=== PATIENT | female | born 1995 | race Caucasian/White ===

== ENCOUNTER 2023-04-05 14:48 | Outpatient (REF) | payer MEDICAID, SELFPAY ==
[2023-04-06 03:31] LABS: Syphilis Screen Nonreactive (Nonreactive)
[2023-04-06 03:58] LABS: HIV AB/AG Nonreactive (Nonreactive); HIV Num 1 0.05 S/CO (0.00-0.99)
[2023-04-06 10:35] LABS: BV Int Neg Control Negative (Negative); BV Int Pos Control Positive (Positive)
== END 2023-04-05 14:49 | disposition home or self-care (01) ==
LOC: HO.HHCL 14:48
PROVIDERS: Visit Provider Emergency Medicine
DX: N89.8 Other specified noninflammatory disorders of vagina (principal); N30.01 Acute cystitis with hematuria
CPT/HCPCS: 36415; 86780; 87086; 87088; 87186; 87389; 87480; 87510; 87660

== ENCOUNTER 2023-12-24 12:06 | Outpatient (REF) | payer MEDICAID, SELFPAY ==
[2023-12-24 15:01] LABS: Anion Gap 12 (12-20); Blood Urea Nitrogen 11 mg/dL (9-16); Calcium 9.2 mg/dL (8.4-10.2); Carbon Dioxide 27 mmol/L (22-29); Chloride 106 mmol/L (96-108); Cholesterol 165 mg/dL (<200); Estimated Glomerular Filt Rate > 60; Glucose Fasting 100 mg/dL (60-99); HDL Cholesterol 41 mg/dL (>40); LDL Cholesterol Calculated 107 mg/dL (<100); Potassium 4.2 mmol/L (3.3-5.1); Sodium 141 mmol/L (135-145); Triglycerides 85 mg/dL (<150)
[2023-12-24 15:16] LABS: TSH reflex Free T4 1.44 uIU/mL (0.32-4.0)
[2023-12-25 08:24] LABS: DHEA Sulfate 256 mcg/dL (14-349)
== END 2023-12-24 12:07 | disposition home or self-care (01) ==
LOC: HO.CHCLDS 12:06
PROVIDERS: Visit Provider Pediatrics
DX: N92.6 Irregular menstruation, unspecified (principal); L68.0 Hirsutism
CPT/HCPCS: 36415; 80048; 80061; 82627; 84443

== ENCOUNTER 2024-05-18 10:07 | Outpatient (AMB) | payer OTHER, SELFPAY ==
--- NOTE | 2024-05-18 10:10 | A.OFFVIS_ITS ---
Vital Signs 05/18/24 10:11 Height 5 ft 2 in Weight 171 lb 4.787 oz BMI 31.3 BP 98/62 Blood Pressure Location Lt brachial Position Sitting Pulse 68 Pulse Source Pulse Oximeter Intake Visit Reasons: Hirsutism Intake Note: New patient present today for Hirsutism office visit. Senior Investment Manager Required: No Accompanied by: Self / Same As Patient Allergies No Known Allergies Allergy (Verified 05/18/24 10:14) Medication List - Last Reconciled 05/18/24 by Korin Minaya MD bupropion HCl XL 150 mg PO DAILY spironolactone 75 mg PO DAILY HPI Comments Details: 29-year-old female coming in today for initial evaluation of hirsutism. presents with no complaints of hirsutism, acne, hair loss. She denies history of HTN, hyperlipidemia, prediabetes. She has family history of paternal grandmother having a pacemaker, but no one with DM, stroke, [place]. Hirsutism: some chin hair she plucks, waxes upper lip, no excessive hair on abdomen or breast. Laser treatment for hair of bikini area and axillae. Legs shave, doesnt do anything on arms. Ferrimen Shin score of 8 done with patient. Reports easy bruising, no proximal muscle weakness. No abdominal striae. Weight 171 lbs BMI 31.1, highest per patient. Feels it has increased in the last 2 years, before she used to be 150 lbs when she works out. Exercises 6 times a week 1 hr cardio 1 hr weights. Diet : 3 meals a day sometimes snacks, fruits mostly, sometimes chips or cookies Denies hair loss on scalp. Acne: 2016 treated with acutane, 2019 again acutane, now again since last year, seeing dermatology , mostly on the cheeks Acne now better Started spironolactone 75 mg 3 months ago through PCP. she has a copper IUD since the past 3-4 years. 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 Menarche: 12 years LMP : 05/15 :1 : 1 Liposuction 2020 Medications: Spironolactone 75 mg daily, Used to be on OCPs but got while on it Cosmetic therapies: Laser hair removal, waxing, threading, plucking She had an ultrasound of her pelvis in February 2024, I do not these results this time. Review of systems Constitutional: no fevers, chills or weight loss HEENT: no changes in vision Cardiac: No chest pain, discomfort or palpitations. Pulmonary: No SOB GI:No abdominal pain, no nausea or vomiting, no anorexia, no blood in stool : no burning micturition, dysuria or increase in urinary frequency Neurologic: No dizziness, no weakness in extremities MSK: no back pain or joint stiffness Physical exam General: sitting comfortably in no acute distress HEENT: normocephalic/atraumatic, moist oral mucosa Neck: supple, symmetrical, no thyromegaly , no dorsocervical or supraclavicular fat pads Cardiac: normal heart sounds Pulm: normal breath sounds B/L, no added breath sounds Abd: not distended, no tenderness Extremities: no edema, no signs of myxedema Neuro: AAO x3, Speech: normal, no facial droop, moving all 4 extremities Skin: no rash, no abdominal striae, no excessive hair noted on side diamond, no facial hair, but she plucks this. No hair on abdomen. [facility] Medical History (Updated 05/18/24 @ 11:09 by Korin Minaya MD) Obesity (BMI 30.0-34.9) Hirsutism Surgical History (Updated 05/18/24 @ 10:16 by MATTHEW Hunt) History of plastic surgery Family History (Updated 05/18/24 @ 10:17 by MATTHEW Hunt) Mother No problems noted. Father Hypertension Social History (Updated 05/18/24 @ 10:18 by MATTHEW Hunt) Alcohol intake: current Comment: Socially Patient Tobacco Use Status: Never used Tobacco Physical Exam Vital Signs: Last Vital Signs Pulse 68 05/18/24 10:11 BP 98/62 05/18/24 10:11 BMI result Body Mass Index 31.3 Results Reviewed Results Reviewed: Laboratory Tests 12/24/23 12/24/23 12:07 12:09 Triglycerides 85 Cholesterol 165 LDL Cholesterol, Calc 107 H HDL Cholesterol 41 TSH 1.44 DHEA Sulfate 256 Assessment & Plan Assessment & Plan (1) Hirsutism: Code(s): L68.0 - Hirsutism Category: Medical Plan: Patient with a history hirsutism, acne. Labs showed normal thyroid function, normal DHEA-S. Nodule lab evaluation. She had an ultrasound of her pelvis/ovaries in February 2024 I do not have the results of those. She is on spironolactone 75 mg daily. No lightheadedness/dizziness. Blood pressure is slightly on the lower side but she is tolerating it well. We will repeat her basic metabolic panel given spironolactone use. She is not on oral contraceptive pills, she has a copper IUD, her periods are regular. She previo usly got and had to have an on the oral contraceptive pill hence she is not on those. She has never tried metformin. New diagnosis of diabetes, prediabetes, hypertension. She does have elevated LDL cholesterol levels. At this time we will do hormonal evaluation though we have to keep in mind she is already on spironolactone since off might be affected because of diet. I will also check prolactin levels. I will also obtain the results of her ultrasound. We will check a 17 hydroxy progesterone levels to evaluate for CAH. Ferrimen Gellway score 8, hirsutism is mild. She is using cosmetic therapies such as laser but only requires plucking for excessive facial hair. Reports improvement on the spironolactone and she can continue that. Discussed importance of contraception and spironolactone with risk of feminization is male fetus. She has a copper IUD. She otherwise has regular menstruation. If she has polycystic ovaries on her ultrasound which I will obtain the results of, then she would meet criteria for PCOS otherwise she has acne/hirsutism without diagnosis of PCOS I reviewed with the patient the implications of polycystic ovarian syndrome in terms of 1) reproductive health (increased risk of infertity, miscarriage), 2) metabolic issues (type 2 diabetes, hypertension, dyslipidemia, cardiovascular disease) and 3) hyperandrogenism (acne, hirsuitism, male pattern hair loss). We reviewed that weight loss in overweight woman can help improve these morbidities, but often woman with PCOS do need further assistance with fertility using metformin plus clomiphene or letrazole. Currently she is not looking into . Plan: -continue spironolactone 75 mg daily , can consider increasing it to 100 patient can tolerate it and needs further improvement for hirsutism -ordered blood work with testosterone levels, 17 hydroxy progesterone, DHEA-S, androstenedione, prolactin, basic metabolic panel, A1c -ordered 24 hour urine cortisol levels to evaluate for [place] given history of obesity, easy bruising -obtain ultrasound records -follow up in 4 weeks (2) Obesity (BMI 30.0-34.9): Code(s): E66.9 - Obesity, unspecified Category: Medical Plan: BMI 31.3 kg per m2 Highest BMI per patient. She used to be 152 lb, now 171 lb. She does report improvement with exercise and lifestyle modification in the past. She is now exercising 6 days a week, and also planning to start with calorie de ficit. I reviewed with patient the importance of weight loss as it relates to decreasing the risk of diabetes, cardiovascular disease, obstructive sleep apnea,PCOS, arthritis. We reviewed the importance of decreasing total calorie consumption, minimizing fats and carbohydrates. Discussed the 500 calorie deficit plan Encouraged good exercise plan We will check A1c. Can consider starting metformin if she has prediabetes. ordered 24 hour urine cortisol levels to evaluate for [place] given history of obesity, easy bruising Plan I spent 45 minutes in reviewing the record, seeing the patient and documenting in the medical record. Orders: Orders Testosterone, Free/Total Today L68.0 - Hirsutism 17 Hydroxyprogesterone Today L68.0 - Hirsutism Lutenizing Hormone Today L68.0 - Hirsutism DHEA Sulfate Today L68.0 - Hirsutism Prolactin Today L68.0 - Hirsutism Cortisol, Free 24Hr Urine Today L68.0 - Hirsutism Androstenedione Today L68.0 - Hirsutism Follicle Stimulating Hormone Today L68.0 - Hirsutism Creatinine, 24 Hr Group Today L68.0 - Hirsutism Hemoglobin A1c Today L68.0 - Hirsutism Basic Metabolic Panel Today L68.0 - Hirsutism Patient Instructions: Do blood work 24 hr urine collection instructions You have been asked to collect your urine for 24 hours to assess for calcium excretion. You must choose a 24 hour period of time when you will be home. The morning of the first day, DISCARD the FIRST morning void and then note the time. You will collect every single void from then on for 24 hours. For example, if you wake up at 6am and urinate, flush down that void. You will then collect every drop of urine all day and all night through 6am the following day. You will urinate one last time at 6am for the collection. The jug of urine must be kept in the refrigerator until you bring it to the lab.You have been asked to collect your urine for 24 hours to assess for calcium excretion. You must choose a 24 hour period of time when you will be home. The morning of the first day, DISCARD the FIRST morning void and then note the time. You will collect every single void from then on for 24 hours. For example, if you wake up at 6am and urinate, flush down that void. You will then collect every drop of urine all day and all night through 6am the following day. You will urinate one last time at 6am for the collection. The jug of urine must be kept in the refrigerator until you bring it to the lab. Weight loss counselling ? Limit added sugars to less than 25 grams daily. There are 4.2 grams of sugar per teaspoon of sugar. A teaspoon of honey has 6 grams of sugar! Bread also can have more sugar than you think-check labels ? No soda or juices. Drink water, unsweetened iced tea or seltzer ? Limit eating out/take out or prepared meals to twice weekly at most ? Avoid red meat, hot dogs, peterson and deli meat. Substitute plant protein for animal protein as much as you can. Beans, nuts, tofu, soy milk ? Limit cheese to 1 ounce a few times weekly ? Eat high fiber foods like beans, apples and green veggies, salsa is a great snack with whole grain cracker like Wasa ? Look for the whole grain stamp when choosing bread etc. Aim for 48 grams of whole grains daily. Whole wheat does not equal whole grains! ? Don't keep tempting treats in the house. Go out once in a while for a treat. ? Don't eat anything deep fried or cream based-no sour cream Coding Level of Care Code New Pt Level 4 (29091) Diagnoses Hirsutism L68.0 Obesity (BMI 30.0-34.9) E66.9 Time Spent (min) 45
[2024-05-18 10:11] VITALS: BP 98/62; PULSE 68; BMI 31.3
== END 2024-05-18 11:03 | disposition home or self-care (01) ==
PROVIDERS: PCP Pediatrics; Visit Provider Student in an Organized Health Care Education/Training Program
DX: L68.0 Hirsutism (principal); E66.9 Obesity, unspecified
CPT/HCPCS: 99204

== ENCOUNTER → 2024-05-18 10:07 | Outpatient (BNVA) | payer MEDICAID, SELFPAY | PROVIDERS: PCP Pediatrics; Visit Provider Student in an Organized Health Care Education/Training Program | DX: L68.0 Hirsutism (principal); E66.9 Obesity, unspecified; Z68.31 Body mass index [BMI] 31.0-31.9, adult | CPT/HCPCS: 99202 ==

== ENCOUNTER 2024-06-19 12:40 | Outpatient (REF) | payer MEDICAID, SELFPAY ==
[2024-06-19 13:42] LABS: Estimated Average Glucose 94 mg/dL; Hemoglobin A1C 95.1476 umol/L; Hemoglobin A1c % 4.9 % (<6.0)
[2024-06-19 14:04] LABS: Creatinine, mg/dL 181.99
[2024-06-19 14:11] LABS: Anion Gap 9 (12-20); Blood Urea Nitrogen 12 mg/dL (9-16); Calcium 9.3 mg/dL (8.4-10.2); Carbon Dioxide 27 mmol/L (22-29); Chloride 106 mmol/L (96-108); Estimated Glomerular Filt Rate > 60; Glucose Random 103 mg/dL (60-115); Potassium 3.8 mmol/L (3.3-5.1); Sodium 138 mmol/L (135-145)
[2024-06-19 14:40] LABS: Creatinine, 24Hr Urine 1.5 G/Day (1.0-2.0); Total Volume 24 Hour Urine 850 mL
[2024-06-21 02:29] LABS: DHEA Sulfate 262 mcg/dL (14-349); Prolactin 16.9 ng/mL
[2024-06-25 15:48] LABS: Testosterone, Free 2.7 pg/mL (0.1-6.4); Testosterone, Total 19 ng/dL (2-45)
[2024-06-27 17:34] LABS: Cortisol Free, 24 Hr Urine 15.2 mcg/24 h (4.0-50.0); Creatinine, 24 Hr Urine 1.42 g/24 h (0.50-2.15); Total Volume, 24 Hr Urine 850 mL
[2024-06-29 13:48] LABS: Androstenedione 146 ng/dL
== END 2024-06-19 12:41 | disposition home or self-care (01) ==
LOC: HO.10HDL 12:40
PROVIDERS: Visit Provider Student in an Organized Health Care Education/Training Program
DX: L68.0 Hirsutism (principal)
CPT/HCPCS: 36415; 80048; 82157; 82530; 82570; 82627; 83001; 83002; 83036; 83498; 84146; 84402; 84403

== ENCOUNTER 2024-06-25 10:36 | Outpatient (AMB) | payer MEDICAID, SELFPAY ==
[2024-06-25 10:42] VITALS: BP 118/72; BMI 30.6
--- NOTE | 2024-06-25 10:42 | MHC.OFFVIS ---
Vital Signs 06/25/24 10:42 Height 5 ft 2 in Weight 167 lb 8.821 oz BMI 30.6 BP 118/72 Blood Pressure Location Lt brachial Position Sitting Intake Visit Reasons: Hairutism-lvm Intake Note: Patient present today for Hirsutism follow up visit. Environmental Issues Instructor Required: No Accompanied by: Self / Same As Patient Allergies No Known Allergies Allergy (Verified 06/25/24 10:50) HPI Comments Details: 29-year-old female coming in today for follow up of hirsutism. HPI from prior visit presents with no complaints of hirsutism, acne, hair loss. She denies history of HTN, hyperlipidemia, prediabetes. She has family history of paternal grandmother having a pacemaker, but no one with DM, stroke, [place]. Hirsutism: some chin hair she plucks, waxes upper lip, no excessive hair on abdomen or breast. Laser treatment for hair of bikini area and axillae. Legs shave, doesnt do anything on arms. Ferrimen Shin score of 8 done with patient. Reports easy bruising, no proximal muscle weakness. No abdominal striae. Weight 171 lbs BMI 31.1, highest per patient. Feels it has increased in the last 2 years, before she used to be 150 lbs when she works out. Exercises 6 times a week 1 hr cardio 1 hr weights. Diet : 3 meals a day sometimes snacks, fruits mostly, sometimes chips or cookies Denies hair loss on scalp. Acne: 2016 treated with acutane, 2019 again acutane, now again since last year, seeing dermatology , mostly on the cheeks Acne now better Started spironolactone 75 mg 3 months ago through PCP. she has a copper IUD since the past 3-4 years. 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 Menarche: 12 years LMP : 05/15 :1 : 1 Liposuction 2020 Medications: Spironolactone 75 mg daily stopped in May 2024, Used to be on OCPs but got while on it Cosmetic therapies: Laser hair removal, waxing, threading, plucking She had an ultrasound of her pelvis in February 2024, I do not these results this time. Interval history She reports she has stopped the spironolactone 75 mg daily a few weeks back in May 2024 due to strong smell in urine. She could not tolerate it. She feels she is comfortable with cosmetic therapies. Menstruation continues to be regular. She has lost 4 lb with lifestyle modification. FSH, LH, prolactin levels normal. Blood work from 06/19/2024 still pending levels of testosterone and 24 hour urine cortisol levels. A1c was normal. Review of systems Constitutional: no fevers, chills or weight loss HEENT: no changes in vision Cardiac: No chest pain, discomfort or palpitations. Pulmonary: No SOB GI:No abdominal pain, no nausea or vomiting, no anorexia, no blood in stool : no burning micturition, dysuria or increase in urinary frequency Neurologic: No dizziness, no weakness in extremities MSK: no back pain or joint stiffness Physical exam General: sitting comfortably in no acute distress HEENT: normocephalic/atraumatic, moist oral mucosa Neck: supple, symmetrical, no thyromegaly , no dorsocervical or supraclavicular fat pads Cardiac: normal heart sounds Pulm: normal breath sounds B/L, no added breath sounds Abd: not distended, no tenderness Extremities: no edema, no signs of myxedema Neuro: AAO x3, Speech: normal, no facial droop, moving all 4 extremities Skin: no rash, no abdominal striae, no excessive hair noted on side diamond, no facial hair, but she plucks this. No hair on abdomen. Laboratory Tests 12/24/23 06/19/24 12:09 12:50 Hemoglobin A1c % 4.9 FSH 11.0 Luteinizing Hormone 22.0 Prolactin 16.9 DHEA Sulfate 256 262 17-Hydroxyprogesterone 144 Laboratory Tests 12/24/23 12/24/23 12:07 12:09 Triglycerides 85 Cholesterol 165 LDL Cholesterol, Calc 107 H HDL Cholesterol 41 TSH 1.44 DHEA Sulfate 256 PFSH Medical History (Updated 05/18/24 @ 11:09 by Korin Minaya MD) Obesity (BMI 30.0-34.9) Hirsutism Surgical History History of plastic surgery Family History Mother No problems noted. Father Hypertension Social History Alcohol intake: current Comment: Socially Patient Tobacco Use Status: Never used Tobacco Physical Exam Vital Signs: Last Vital Signs BP 118/72 06/25/24 10:42 BMI result Body Mass Index 30.6 Assessment & Plan Assessment & Plan (1) Hirsutism: Code(s): L68.0 - Hirsutism Category: Medical Plan: Patient with a history hirsutism, acne. Labs showed normal thyroid function, normal DHEA-S. . She had an ultrasound of her pelvis/ovaries in February 2024 I do not have the results of those. We tried obtaining these from [facility] records, however they faxed back saying they do not have any records. I have asked the patient to obtain these results from me and send them to me. If not found, I will have her repeat an ultrasound of her uterus/ovaries. She has stopped taking the spironolactone 75 mg daily in May 2024 due to strong smell in the urine, which improved after stopping the medication. She is not interested in this at this time and is okay with pursuing cosmetic therapies such as plucking/shaving. She is not on oral contraceptive pills, she has a copper IUD, her periods are regular. She previously got and had to have an on the oral contraceptive pill hence she is not on those. She has never tried metformin. No diagnosis of diabetes, prediabetes, hypertension. Normal prolactin, FSH, LH, 17 hydroxyprogesterone and DHEA-S levels. Testosterone levels are pending. Ferrimen Gellway score 8, hirsutism is mild. She is using cosmetic therapies such as laser but only requires plucking for excessive facial hair. she can continue that. She otherwise has regular menstruation. If she has polycystic ovaries on her ultrasound which I will obtain the results of, then she would meet criteria for PCOS otherwise she has acne/hirsutism without diagnosis of PCOS I reviewed with the patient the implications of polycystic ovarian syndrome in terms of 1) reproductive health (increased risk of infertity, miscarriage), 2) metabolic issues (type 2 diabetes, hypertension, dyslipidemia, cardiovascular disease) and 3) hyperandrogenism (acne, hirsuitism, male pattern hair loss). We reviewed that weight loss in overweight woman can help improve these morbidities, but often woman with PCOS do need further assistance with fertility using metformin plus clomiphene or letrazole. Currently she is not looking into . Plan: - -follow up results of testosterone levels, -follow up results of 24 hour urine cortisol levels to evaluate for [place] given history of obesity, easy bruising -obtain ultrasound records (2) Obesity (BMI 30.0-34.9): Code(s): E66.9 - Obesity, unspecified Category: Medical Plan: BMI 30.6 kg/m2 down from 31.3 kg per m2 Highest BMI per patient was 31. She used to be 152 lb, now down to 167 lbs from 171 lb in 4 weeks. She does report improvement with exercise and lifestyle modification in the past. She is now exercising 6 days a week, and also doing calculation with calorie deficit. I reviewed with patient the importance of weight loss as it relates to decreasing the risk of diabetes, cardiovascular disease, obstructive sleep apnea,PCOS, arthritis. We reviewed the importance of decreasing total calorie consumption, minimizing fats and carbohydrates. Encouraged to continue the 500 calorie deficit plan Encouraged good exercise plan Follow up in 12 weeks Plan see above Coding Level of Care Code Est Pt Level 3 (94085) Diagnoses Hirsutism L68.0 Obesity (BMI 30.0-34.9) E66.9
== END 2024-06-25 11:19 | disposition home or self-care (01) ==
LOC: HO.ENCR 10:37
PROVIDERS: PCP Pediatrics; Visit Provider Student in an Organized Health Care Education/Training Program
DX: L68.0 Hirsutism (principal); E66.9 Obesity, unspecified
CPT/HCPCS: 99213

== ENCOUNTER → 2024-06-25 10:36 | Outpatient (BNVA) | payer MEDICAID, SELFPAY | PROVIDERS: PCP Pediatrics; Visit Provider Student in an Organized Health Care Education/Training Program | DX: L68.0 Hirsutism (principal); E66.9 Obesity, unspecified; Z68.30 Body mass index [BMI] 30.0-30.9, adult | CPT/HCPCS: 99212 ==

== ENCOUNTER 2024-08-10 09:31 | Outpatient (AMB) | payer MEDICAID, SELFPAY ==
[2024-08-10 09:34] VITALS: BP 118/60; PULSE 76; BMI 31.1
--- NOTE | 2024-08-10 09:34 | A.OFFVIS_ITS ---
Vital Signs 08/10/24 09:34 Height 5 ft 2 in Weight 170 lb 3.15 oz BMI 31.1 BP 118/60 Blood Pressure Location Lt brachial Position Sitting Pulse 76 Pulse Source Pulse Oximeter Intake Visit Reasons: hirsutism Intake Note: Patient present today for Hirsutism office visit. Oracle Data Warehouse Developer Required: No Accompanied by: Self / Same As Patient Allergies No Known Allergies Allergy (Verified 08/10/24 09:37) HPI Comments Details: 29-year-old female coming in today for follow up of hirsutism and obesity . HPI from prior visit presents with complaints of hirsutism, acne, hair loss. She denies history of HTN, prediabetes. She has family history of paternal grandmother having a pacem stephanie, but no one with DM, stroke, [place]. . Hirsutism: some chin hair she plucks, waxes upper lip, no excessive hair on abdomen or breast. Laser treatment for hair of bikini area and axillae. Legs shave, doesnt do anything on arms. Ferrimen Shin score of 8 done with patient. Reports easy bruising, no proximal muscle weakness. No abdominal striae. Weight 171 lbs BMI 31.1, highest per patient. Feels it has increased in the last 2 years, before she used to be 150 lbs when she works out. Exercises 6 times a week 1 hr cardio 1 hr weights. Diet : 3 meals a day sometimes snacks, fruits mostly, sometimes chips or cookies Denies hair loss on scalp. Acne: 2016 treated with acutane, 2019 again acutane, now again since last year, seeing dermatology , mostly on the cheeks Acne now better Started spironolactone 75 mg 3 months ago through PCP. she has a copper IUD since the past 3-4 years. 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 Menarche: 12 years LMP : 05/15 :1 : 1 Liposuction 2020 Medications: Spironolactone 75 mg daily stopped in May 2024, Used to be on OCPs but got while on it Cosmetic therapies: Laser hair removal, waxing, threading, plucking She had an ultrasound of her pelvis in February 2024, I do not have the report scanned in but patient showed me a picture of the report on her phone today08/10/24 which showed no polycystic ovaries , normal appearance of the ovaries and a subserosal fundal fibroid 1.3 x 0.9 x 1.3 cm done at [facility] 03/03/24. Interval history 06/25/24 She reports she has stopped the spironolactone 75 mg daily a few weeks back in May 2024 due to strong smell in urine. She could not tolerate it. She feels she is comfortable with cosmetic therapies. Menstruation continues to be regular. She has lost 4 lb with lifestyle modification. FSH, LH, prolactin levels normal. Blood work from 06/19/2024 shoed normal levels of testosterone and 24 hour urine cortisol levels. A1c was normal. Interval history 08/10/24 BMI 31.1 up from 30.6 kg/m2 Weight up at 171 from 167s lbs Exercise 3 miles a day walking daily , also weight training 4 times a week, hot yoga once a week Diet : trying to do a calorie deficit with calori counter trying to do 500 calories almost daily Has copper IUD Review of systems Constitutional: no fevers, chills or weight loss HEENT: no changes in vision Cardiac: No chest pain, discomfort or palpitations. Pulmonary: No SOB GI:No abdominal pain, no nausea or vomiting, no anorexia, no blood in stool : no burning micturition, dysuria or increase in urinary frequency Neurologic: No dizziness, no weakness in extremities MSK: no back pain or joint stiffness Physical exam General: sitting comfortably in no acute distress HEENT: normocephalic/atraumatic, moist oral mucosa Neck: supple, symmetrical, no thyromegaly , no dorsocervical or supraclavicular fat pads Cardiac: normal heart sounds Pulm: normal breath sounds B/L, no added breath sounds Abd: not distended, no tenderness Extremities: no edema, no signs of myxedema Neuro: AAO x3, Speech: normal, no facial droop, moving all 4 extremities Skin: no rash, no abdominal striae, no excessive hair noted on side diamond, no facial hair, but she plucks this. No hair on abdomen. Laboratory Tests 12/24/23 06/19/24 12:09 12:50 Hemoglobin A1c % 4.9 FSH 11.0 Luteinizing Hormone 22.0 Prolactin 16.9 DHEA Sulfate 256 262 17-Hydroxyprogesterone 144 Laboratory Tests 12/24/23 12/24/23 12:07 12:09 Triglycerides 85 Cholesterol 165 LDL Cholesterol, Calc 107 H HDL Cholesterol 41 TSH 1.44 DHEA Sulfate 256 Laboratory Tests 06/19/24 06/19/24 10:00 12:50 FSH 11.0 Luteinizing Hormone 22.0 Total Testosterone 19 Fr Testosterone Dialys 2.7 Androstenedione 146 DHEA Sulfate 262 17-Hydroxyprogesterone 144 Urine Total Volume 850 Ur 24 Hour Volume 850 Ur Creatinine mg/dL 181.99 Ur Creatinine 24 Hour 1.42 Ur Free Cortisol 24 Hr 15.2 PFSH Medical History (Updated 05/18/24 @ 11:09 by Korin Minaya MD) Obesity (BMI 30.0-34.9) Hirsutism Surgical History History of plastic surgery Family History Mother No problems noted. Father Hypertension Social History Alcohol intake: current Comment: Socially Patient Tobacco Use Status: Never used Tobacco Assessment & Plan Assessment & Plan (1) Hirsutism: Code(s): L68.0 - Hirsutism Category: Medical Plan: Patient with a history hirsutism, acne. Labs showed normal thyroid function, normal DHEA-S. . She had an ultrasound of her pelvis/ovaries in February 2024 at [facility] which did not show polycystic ovaries. She has stopped taking the spironolactone 75 mg daily in May 2024 due to strong smell in the urine, which improved after stopping the medication. She is not interested in this at this time and is okay with pursuing cosmetic therapies such as plucking/shaving. She is not on oral contraceptive pills, she has a copper IUD, her periods are regular. She previously got and had to have an on the oral contraceptive pill hence she is not on those. She has never tried metformin. No diagnosis of diabetes, prediabetes, hypertension. Normal prolactin, FSH, LH, 17 hydroxyprogesterone and DHEA-S levels, testosterone levels. Normal 24 hour urine cortisol level. Ferrimen Gellway score 8, hirsutism is mild. She is u sing cosmetic therapies such as laser but only requires plucking for excessive facial hair. she can continue that. Plan: -continue cosmetic measures -if interested in spironolactone again please let us know (2) Obesity (BMI 30.0-34.9): Code(s): E66.9 - Obesity, unspecified Category: Medical Plan: BMI 31.1 kg per m2 up from 30.6 kg/m2 in May 2024 Highest BMI per patient was 31. She used to be 152 lb, now at 171 lb up from 167 lbs May 2024. She has made extensive lifestyle modification in the past 6 months. She is maintaining a 500 calorie deficit daily on her phone apps , walking 3 miles daily, also doing resistance training in addition to that and hot yoga. No acromegalic features. 24 hour urine cortisol was normal. I reviewed with patient the importance of weight loss as it relates to decreasing the risk of diabetes, cardiovascular disease, obstructive sleep apnea,PCOS, arthritis. At this point patient has a lot of justified frustration that she has not seen any results with weight loss despite putting a lot of work cane, and given her BMI is greater than 30 kg per m2 she would qualify for weight loss medication. We discussed GLP 1 agonist, including semaglutide and tirzepatide. I discussed with her modes of administration, common side effects of GI intolerance, as well as less common side effects of pancreatitis, medullary thyroid cancer in rodents. She drinks alcohol occasionally. Does not have any history of gallstones. Denies any family or personal history of medullary thyroid cancer. Plan: -start Wegovy 0.25 mg weekly with plan for up titration in 4-6 weeks Follow up in 12 weeks Plan I spent 30 minutes in reviewing the record, seeing the patient and documenting in the medical record. Medications: New semaglutide (weight loss) (Wegovy) 0.25 mg (0.5 mL) subcut QWEEK 4 mL 5RF Patient Instructions: Start Wegovy 0.25 mg weekly Reach out to us in 6 weeks or so with increasing the dose Coding Level of Care Code Est Pt Level 4 (46009) Diagnoses Hirsutism L68.0 Obesity (BMI 30.0-34.9) E66.9 Time Spent (min) 30
== END 2024-08-10 10:05 | disposition home or self-care (01) ==
PROVIDERS: PCP Pediatrics; Visit Provider Student in an Organized Health Care Education/Training Program
DX: L68.0 Hirsutism (principal); E66.9 Obesity, unspecified
CPT/HCPCS: 99214

== ENCOUNTER → 2024-08-10 09:31 | Outpatient (BNVA) | payer MEDICAID, SELFPAY | PROVIDERS: PCP Pediatrics; Visit Provider Student in an Organized Health Care Education/Training Program | DX: L68.0 Hirsutism (principal); E66.9 Obesity, unspecified; Z68.31 Body mass index [BMI] 31.0-31.9, adult | CPT/HCPCS: 99212 ==

== ENCOUNTER 2024-11-09 09:35 | Outpatient (AMB) | payer MEDICAID, SELFPAY ==
--- NOTE | 2024-11-09 09:38 | MHC.OFFVIS ---
Vital Signs 11/09/24 09:39 Height 5 ft 2 in Weight 162 lb 11.218 oz BMI 29.8 BP 122/80 Blood Pressure Location Lt brachial Position Sitting Pulse 87 Pulse Source Pulse Oximeter Pulse Oximetry (%) 97 Oxygen Delivery Method Room Air Intake Visit Reasons: hirsutism Intake Note: Patient present today for hirsutism office visit. Allergies No Known Allergies Allergy (Verified 08/10/24 09:37) Medication List - Last Reconciled 11/09/24 by Korin Minaya MD sennosides (senna) 8.6 mg PO DAILY tirzepatide (weight loss) (Zepbound) 5 mg (0.5 mL) subcut QWEEK HPI Comments Details: 29-year-old female coming in today for follow up of hirsutism and obesity . HPI from prior visit presents with complaints of hirsutism, acne, hair loss. She denies history of HTN, prediabetes. She has family history of paternal grandmother having a pacemaker, but no one with DM, stroke, [place]. . Hirsutism: some chin hair she plucks, waxes upper lip, no excessive hair on abdomen or breast. Laser treatment for hair of bikini area and axillae. Legs shave, doesnt do anything on arms. Ferrimen Shin score of 8 done with patient. Reports easy bruising, no proximal muscle weakness. No abdominal striae. Weight 171 lbs BMI 31.1, highest per patient. Feels it has increased in the last 2 years, before she used to be 150 lbs when she works out. Exercises 6 times a week 1 hr cardio 1 hr weights. Diet : 3 meals a day sometimes snacks, fruits mostly, sometimes chips or cookies Denies hair loss on scalp. Acne: 2016 treated with acutane, 2019 again acutane, now again since last year, seeing dermatology , mostly on the cheeks Acne now better Started spironolactone 75 mg 3 months ago through PCP. she has a copper IUD since the past 3-4 years. 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 Menarche: 12 years LMP : 05/15 :1 : 1 Liposuction 2020 Medications: Spironolactone 75 mg daily stopped in May 2024, Used to be on OCPs but got while on it Cosmetic therapies: Laser hair removal, waxing, threading, plucking She had an ultrasound of her pelvis in February 2024, I do not have the report scanned in but patient showed me a picture of the report on her phone today08/10/24 which showed no polycystic ovaries , normal appearance of the ovaries and a subserosal fundal fibroid 1.3 x 0.9 x 1.3 cm done at [facility] 03/03/24. Interval history 06/25/24 She reports she has stopped the spironolactone 75 mg daily a few weeks back in May 2024 due to strong smell in urine. She could not tolerate it. She feels she is comfortable with cosmetic therapies. Menstruation continues to be regular. She has lost 4 lb with lifestyle modification. FSH, LH, prolactin levels normal. Blood work from 06/19/2024 shoed normal levels of testosterone and 24 hour urine cortisol levels. A1c was normal. Interval history 08/10/24 BMI 31.1 up from 30.6 kg/m2 Weight up at 171 from 167s lbs Exercise 3 miles a day walking daily , also weight training 4 times a week, hot yoga once a week Diet : trying to do a calorie deficit with calori counter trying to do 500 calories almost daily Has copper IUD Interval history 11/09/2024 BMI: 29.8 kg per m2 down from 31.1 kg per m2 July 2024 Weight at 162 lb down from 171 lb in July 2024 (3 months) Exercise: Exercise 4 miles (10 k steps) a day walking daily , also weight training 5 times a week, hot yoga three times a week Diet: Diet : trying to do a calorie deficit with calori counter trying to do 500 calories almost daily Currently on Zepbound 5 mg weekly, earlier had trouble with constipation now improved with stool softeners. Physical exam General: sitting comfortably in no acute distress HEENT: normocephalic/atraumatic, moist oral mucosa Cardiac: normal heart sounds Pulm: normal breath sounds B/L, no added breath sounds Abd: not distended, no tenderness Extremities: no edema, no signs of myxedema Neuro: AAO x3, Speech: normal, no facial droop, moving all 4 extremities Laboratory Tests 12/24/23 06/19/24 12:09 12:50 Hemoglobin A1c % 4.9 FSH 11.0 Luteinizing Hormone 22.0 Prolactin 16.9 DHEA Sulfate 256 262 17-Hydroxyprogesterone 144 Laboratory Tests 12/24/23 12/24/23 12:07 12:09 Triglycerides 85 Cholesterol 165 LDL Cholesterol, Calc 107 H HDL Cholesterol 41 TSH 1.44 DHEA Sulfate 256 Laboratory Tests 06/19/24 06/19/24 10:00 12:50 FSH 11.0 Luteinizing Hormone 22.0 Total Testosterone 19 Fr Testosterone Dialys 2.7 Androstenedione 146 DHEA Sulfate 262 17-Hydroxyprogesterone 144 Urine Total Volume 850 Ur 24 Hour Volume 850 Ur Creatinine mg/dL 181.99 Ur Creatinine 24 Hour 1.42 Ur Free Cortisol 24 Hr 15.2 PFSH Medical History (Updated 05/18/24 @ 11:09 by Korin Minaya MD) Obesity (BMI 30.0-34.9) Hirsutism Surgical History History of plastic surgery Family History Mother No problems noted. Father Hypertension Social History Alcohol intake: current Comment: Socially Patient Tobacco Use Status: Never used Tobacco Assessment & Plan Assessment & Plan (1) Hirsutism: Code(s): L68.0 - Hirsutism Category: Medical Plan: Patient with a history hirsutism, acne. Labs showed normal thyroid function, normal DHEA-S. . She had an ultrasound of her pelvis/ovaries in February 2024 at [facility] which did not show polycystic ovaries. She has stopped taking the spironolactone 75 mg daily in May 2024 due to strong smell in the urine, which improved after stopping the medication. She is not interested in this at this time and is okay with pursuing cosmetic therapies such as plucking/shaving. She is not on oral contraceptive pills, she has a copper IUD, her periods are regular. She previously got and had to have an on the oral contraceptive pill hence she is not on those. She has never tried metformin. No diagnosis of diabetes, prediabetes, hypertension. Normal prolactin, FSH, LH, 17 hydroxyprogesterone and DHEA-S levels, testosterone levels. Normal 24 hour urine cortisol level. Ferrimen Gellway score 8, hirsutism is mild. She is using cosmetic therapies such as laser but only requires plucking for excessive facial hair. she can continue that. Plan: -continue cosmetic measures -if interested in spironolactone again please let us know (2) Obesity (BMI 30.0-34.9): Code(s): E66.9 - Obesity, unspecified Category: Medical Plan: BMI: 29.8 kg per m2 down from 31.1 kg per m2 July 2024 Weight at 162 lb down from 171 lb in July 2024 (3 months) Highest BMI per patient was 31. She used to be 152 lb, She has made extensive lifestyle modification in the pastyear She is maintaining a 500 calorie deficit daily on her phone apps , walking 4 miles daily, also doing resistance training in addition to that and hot yoga. No acromegalic features. 24 hour urine cortisol was normal. Started Zepbound Aug 2024, humberto on 5 mg weekly dose , lost 10 lbs since Aug 18. She drinks alcohol occasionally. Does not have any history of gallstones. Denies any family or personal history of medullary thyroid cancer. Plan: -Increase zepbound to 7.5 mg weekly injection - Continue lifestyle modification as you are with calorie deficit and exercise as mentioned above Follow up in 12 weeks Plan see above Medications: New tirzepatide (weight loss) (Zepbound) 7.5 mg (0.5 mL) subcut QWEEK 2 mL 4RF Discontinued tirzepatide (weight loss) (Zepbound) do 2.5 mg weekly dose for 4 weeks and then increase to 5 mg weekly Discontinued Reason: Doctor's Order 5 mg (0.5 mL) subcut QWEEK 2 mL 2RF Patient Instructions: Increase Zepbound to 7.5 mg weekly injection Follow up in 3 months Coding Level of Care Code Est Pt Level 3 (59844) Diagnoses Hirsutism L68.0 Obesity (BMI 30.0-34.9) E66.9
[2024-11-09 09:39] VITALS: BP 122/80; PULSE 87; O2SAT 97; BMI 29.8
--- OUTSIDE RECORDS SUMMARY | 2024-11-09 10:25 | XMS_ITS | Encounter Summary ---
Author Organization [employer] Address [address] [place] [address] Care Team Providers Care Robotics Application Engineer Name Role Phone Mima Dixon MD Primary Care Provider [phone] Reason for Visit * Reason Onset Date Comments Results 12/31/2023 Encounter Details Date Type Department Care Team ([facility] st Contact Info) Description 12/31/2023 Telephone [facility] MED[facility]INE [address] [place] [address] Mima Dxion MD [address] [place] [id number] Results Social History Tobacco Use Types Packs/Day Years Used Date Smoking Tobacco: Never Passive Smoke Exposure: Never Smokeless Tobacco: Never Depression Answer Date Recorded Patient Health Questionnaire-9 Score 9 08/06/2023 Patient Health Questionnaire-9 Score 9 08/06/2023 Last PHQ-9: Questionnaire Data Not on file 1 10/07/2022 Housing Stability Answer Date Recorded What is your housing situation today? I have yoan cain 06/25/[address] you li ve. Do you have problems with any of the following? None of the above 06/25/2023 Food Insecurity Answer Date Recorded Within the past 12 months, y ou worried that your food would run out before you got money to buy more: Never True 06/25/2023 Within the past 12 months,th e food you bought just didn't last and you didn't have enough money to get more: Never True Transportation Answer Date Recorded In the past 12 months, has l ack of transportation kept you from medical appts, meetings, work or from getting things needed for daily living? No 06/25/2023 Utilities Answer Date Recorded In the past 12 months, has t he electric, gas, oil or water company threatened to shut off services in your home? No 06/25/2023 Depression Answer Date Recorded Patient Health Questionnaire-2 Score 4 08/06/2023 Comments Unknown Sex and Gender Information Value Date Recorded Sex Assigned at Female 06/25/2022 10:18 AM EDT Legal Sex Female 10:18 AM EDT Gender Identity Female 06/25/2022 10:18 AM EDT Sexual Orientation Straight 06/25/2022 10 :18 AM EDT documented as of this encounter Miscellaneous Notes * Telephone Encounter - Wing Sheila RN - 12/31/2023 2:04 PM EDT Tc to pt to relay that lab results from 12/23 are all normal. Pt was concerned about hormone levels and reassured pt that TSH levels were not abnormal. Pt states she has upcoming instructor trainer canine service appt.Stated to pt to call back if she had any further questions. Pt verbalized understanding and agreement with plan. * Telephone Encounter - Constanza Candelario - 12/31/2023 11:49 AM EDT Tc from pt requesting a call back with results from 12/23 documented in this encounter Plan of Treatment Not on file documented as of this encounter Visit Diagnoses Not on filedocumented in this encounter Additional Health Concerns Assessment Noted Time PHQ-9 Depression Total Score: 9 08/06/20 23 3:52 PM EST documented as of this encounter Care Teams Robotics Application Engineer Relationship Specialty Start Date End Date Mima Dixon MD [address] [place] [id number] PCP - General Family Medicine 08/26/18 documented as of this encounter
--- OUTSIDE RECORDS SUMMARY | 2024-11-09 10:25 | XMS_ITS | Encounter Summary ---
Author Organization [facility] Address [address] [place] [address] Care Team Providers Care Inserting Machine Operator Name Role Phone Mima Dixon MD Primary Care Provider [phone] Reason for Visit * Reason Onset Date Comments Nurse Triage 02/25/2023 Encounter Details Date Type Department Care Team ([facility] st Contact Info) Description 02/25/2023 Telephone [facility] [address] [place], [place] [phone] Mima Dixon MD [address] [place] [address] Nurse Triage Social History Tobacco Use Types Packs/Day Years Used Date Smoking Tobacco: Never Passive Smoke Exposure: Never Smokeless Tobacco: Never Depression Answer Date Recorded Patient Health Questionnaire-9 Score 5 11/21/2022 Depression Answer Date Recorded Patient Health Questionnaire-2 Score 1 11/21/2022 Comments Unknown Sex and Gender Information Value Date Recorded Sex Assigned at Female 06/25/2022 10:18 AM EDT Legal Sex Female 10:18 AM EDT Gender Identity Female 06/25/2022 10:18 AM EDT Sexual Orientation Straight 06/25/2022 10 :18 AM EDT COVID-19 Exposure Response Date Recorded In the last 10 days, have yo u been in contact with someone who was confirmed or suspected to have Coronavirus/COVID-19? No / Unsure 02/25/2023 10:51 AM EDT documented as of this encounter Miscellaneous Notes * Telephone Encounter - Nathalia Barraza RN - 02/25/2023 9:59 AM EDT Triage call Pt reports cough for last 2 weeks, dry cough not affected by cough drops or antihistamine. Pt has developed a sore throat , it is hard to swallow and painful. Neg for fever. Pt is advisedto increase liquids to 6-8 glasses per day, warm liquids helpful, soft foods, tylenol/ibuprofen as needed. Pt agreed with disposition and Apt in [facility] 02/25 @ 1040am. Insurance is verified as active prior to booking. Protocol Used: Sore Throat (Adult) Protocol-Based Disposition: Strep Test Only Visit Today or Tomorrow Video visit not offered Positive Triage Question: * Sore throat is main symptom and persists > 48 hours * All higher-acuity triage questions were negative Care Advice Discussed: * For Relief of Sore Throat Pain * Pain and Fever Medicines * Soft Diet * Drink Plenty of Liquids * Contagiousness * Expected Course * Reasons To Call Back - Sore throat is the main symptom and it lasts longer than 48 hours - Sore throat is mild but lasts longer than 4 days - Fever lasts longer than 3 days - You become worse * Telephone Encounter - Onel Ruiz - 02/25/2023 9:43 AM EDT Tc from pt returning call. * Telephone Encounter - Yeni Navarro - 02/25/2023 9:27 AM EDT Symptoms: Cough, Sore Throat Outcome: Schedule an urgent appointment (within 4 hours) or talk to a nurse or provider soon Reason: Trouble swallowing The caller accepted this outcome Please contact pt at [phone] documented in this encounter Plan of Treatment Not on file documented as of this encounter Visit Diagnoses Not on filedocumented in this encounter Additional Health Concerns Assessment Noted Time PHQ-9 Depression Total Score: 5 11/22/19 23 9:59 AM EDT documented as of this encounter Care Teams Inserting Machine Operator Relationship Specialty Start Date End Date Mima Dixon MD [address] [place] [id number] PCP - General Family Medicine 08/26/18 documented as of this encounter
--- OUTSIDE RECORDS SUMMARY | 2024-11-09 10:25 | XMS_ITS | Clinical Summary ---
Author Organization [employer] Address [address] [place] [address] Care Team Providers Care Fender Mechanic Name Role Phone Mima Dixon MD Primary Care Provider [phone] Allergies No known active allergies Medications * This document contains information received from the source organization and may not represent a complete record from that organization. valACYclovir (Valtrex) 1 g tablet Take 1,000 mg by mouth every 12 (twelve) hours. 04/28/20 22 Active cholecalciferol (Vitamin D-3) 1.25 MG (33611 UT) capsule Take by mouth 1 (one) time per week. 12/27/19 23 Active copper (Paragard) IUD Take by intrauterine route. Active minocycline 100 MG capsule TAKE 1 CAPSULE BY MOUTH TWICE DAILY WITH A NON DAIRY SNACK AND FULL GLASS OF WATER 01/01/20 23 Active Retin-A 0.025 % gel APPLY A PEA SIZED AMOUNT TO THE ENTIRE FACE ONCE DAILY AT BEDTIME 11/02/19 23 Active valACYclovir (Valtrex) 1 g tablet take 2 tablet by oral route every 12 hours for 1 day 03/02/20 22 Active cetirizine (ZyrTEC) 10 MG tablet Take 1 tablet (10 mg) by mouth in the morning. 10 tablet 02/26/20 23 Active ketotifen (Zaditor) 0.025 % ophthalmic solution INSTILL 1 DROP INTO BOTH EYES TWICE DAILY NEEDED 02/24/20 23 Active diclofenac (Cataflam) 50 MG tablet Once a day as needed 20 tablet 3 03/06/20 23 Active buPROPion XL (Wellbutrin XL) 150 MG 24 hr tabletIndication s:Recurrent anxiety Do not crush, chew, or split. 90 tablet 1 02/20/20 24 Active docusate sodium (Colace) 100 MG capsule Take 1 capsule (100 mg) by mouth 2 times daily. 180 capsule 10/06/19 25 025 Active sennosides (Senokot) 8.6 MG tabletIndication s:Constipation, unspecified constipation type Take 1 tablet (8.6 mg) by mouth Once per day. 30 tablet 10/09/19 25 026 Active polyethylene glycol, PEG, 3350 (Glycolax) 17 GM/SCOOP powderIndication s:Constipation, unspecified constipation type Take 17 g by mouth Once per day. 527 g 10/09/19 25 025 Active famotidine (Pepcid) 20 MG tabletIndication s:Generalized abdominal pain Take 1 tablet (20 mg) by mouth 2 times daily. 60 tablet 11 10/09/19 25 026 Active ondansetron (Zofran) 4 MG tabletIndication s:Generalized abdominal pain Take 2 tablets (8 mg) by mouth every 8 (eight) hours if needed for nausea or vomiting for up to 7 days. 20 tablet 10/09/19 25 025 Active Problems Problem Noted Date Diagnosed Date Generalized abdominal pain 10/09/2024 Assessment & Plan (10/09/2024 3:17 PM EST): I advise patient to avoid NSAIDs, spicy and acid food, I advise to eat at the same time every day, I advise to elevate the head of the bed and take medications as prescribe I will prescribe famotidine 20mg BID I will prescribe zofran PRN Constipation 10/09/2024 Assessment & Plan (10/09/2024 3:18 PM EST): I advised to increase water and fiber in her diet I will prescribe Senokot I instructed if this medication is not helping to MiraLAX I advised to report this symptoms to provider who is prescribing zepbound Anxiety 08/06/2023 Assessment & Plan (08/06/2023 4:04 PM EST): During IBH Consult Farida presenting with depressed mood, loss of interests/pleasure, change in sleep, change in appetite or weight, loss of energy, trouble concentrating, thoughts of worthlessness or guilt and difficulty concentrating, dizziness, fatigue, feelings of losing control, insomnia, irritable, palpitations, psychomotor agitation, racing thoughts, shortness of breath; for a period of 6-12 mo, for all symptoms in the context of family issues employment concern. PLAN: (check all that apply) New/Additional Services needed On-site non-integrated services Off-site services for BH, Behavioral Health Integration Plan Internal Follow up with I, External Pt will be referred outside the [facility] once she changes her insurance in 2023, Patient Self Plan Patient to utilize skills provided in intervention , Patient to reach out to [facility] team as needed, Patient to engage in OP therapy , Patient to reach out to [facility] as needed, and Patient to follow-up with external team. Grief 08/06/2023 Assessment & Plan (08/06/2023 4:04 PM EST): During IBH Consult Farida presenting with depressed mood, loss of interests/pleasure, change in sleep, change in appetite or weight, loss of energy, trouble concentrating, thoughts of worthlessness or guilt and difficulty concentrating, dizziness, fatigue, feelings of losing control, insomnia, irritable, palpitations, psychomotor agitation, racing thoughts, shortness of breath; for a period of 6-12 mo, for all symptoms in the context of family issues employment concern. PLAN: (check all that apply) New/Additional Services needed On-site non-integrated services Off-site services for , Behavioral Health Integration Plan Internal Follow up with [facility], External Pt will be referred outside the [facility] once she changes her insurance in 2023, Patient Self Plan Patient to utilize skills provided in intervention , Patient to reach out to [facility] team as needed, Patient to engage in OP BH therapy , Patient to reach out to [facility] as needed, and Patient to follow-up with external team. Back pain 03/06/2023 Assessment & Plan (03/06/2023 7:01 PM EDT): Likely musculoskeletal. Non-focal, normal motor exam without neurological deficits. No back pain red-flags: bowel/bladder incontinence, IVDU, urinary retention, saddle anesthesia, and significant motor deficits. -Recommend diclofenac prn. -She will research local chiropractors to see which she might have services similar to her chiropracter in [facility] and we can send a referral when she has a name/address -Acupuncture clinic offered. -Lifting precaution sand stretching reviewed. -Work note for 2 weeks given -Call is symptoms worsen or do not improve. Sore throat 02/25/2023 Assessment & Plan (02/25/2023 11:26 AM EDT): Patient with sore throat and mild cough present for x2 with no relief after use of cough syrup. Rapid COVID and strep test NEG. At this point, will trial course of Augmentin 875-125 mg and start on cetirizine 10 mg and dextromethorphan 30 mg/5 mL. Rhinosinusitis 02/25/2023 Gastroesophageal reflux disease 01/19/2020 Acne 03/03/2014 Encounters Date Type Department Care Team Description 10/09/2024 2:20 PM EST Office Visit [facility] [address] [place] [address] Ely Haji MD Generalized abdominal pain (Primary Dx); Constipation, unspecified constipation type 10/06/2024 2:15 PM EST Office Visit [facility] [address] [place] [address] Gabriel Tony MD Rectal bleeding (Primary Dx); Other constipation 10/06/2024 Orders Only [facility] [address] [place] [address] Gabriel Tony MD 10/06/2024 Travel 10/05/2024 Telephone [facility] [address] [place] [address] Mima Dixon MD Nurse Triage 08/13/2024 11:15 AM EST Office Visit [facility] [address] [place] [address] Mima Dixon MD Anxiety (Primary Dx) 08/13/2024 Travel from Last 3 Months Immunizations Name Administration Dates Next Due DTP 02/07/2005,05/05/1996,1995 HPV, Quadrivalent 10/15/2008,11/11/2007,01/31/20 07 Hep B, Adolescent or Pediatric 5,04/14/1996,03/12/1996,07/22 Hep B, Unspecified 03/28/2017 IPV 02/07/2005, 6,03/12/1996,04/06 Influenza injectable quadriv alent IIV4 with preservative 06/05/2019 Influenza, IIV3, injectable 08/15/2010 MMR 03/28/2017, 5,06/20/1996,06/20 Meningococcal MCV4P ACYW-135 03/03/2014 Meningococcal MPSV4 01/30/2007 Tdap 03/03/2014 Varicella 06/29/2014,11/15/2004 Social History Tobacco Use Types Packs/Day Years Used Date Smoking Tobacco: Never Passive Smoke Exposure: Never Smokeless Tobacco: Never Tobacco Cessation:Counseling Given: Not Answered Comments:Smokes Hookah Depression Answer Date Recorded Patient Health Questionnaire-9 Score 8 08/13/2024 Patient Health Questionnaire-9 Score 8 08/13/2024 Last PHQ-9: Questionnaire Data Not on file 1 10/14/2023 Housing Stability Answer Date Recorded What is your housing situation today? I have yoanrachna cain 02/20/[address] you li ve. Do you have problems with any of the following? None of the above 02/20/2024 Food Insecurity Answer Date Recorded Within the past 12 months, y ou worried that your food would run out before you got money to buy more: Never True 02/20/2024 Within the past 12 months,th e food you bought just didn't last and you didn't have enough money to get more: Never True Transportation Answer Date Recorded In the past 12 months, has l ack of transportation kept you from medical appts, meetings, work or from getting things needed for daily living? No 02/20/2024 Utilities Answer Date Recorded In the past 12 months, has t he electric, gas, oil or water company threatened to shut off services in your home? No 02/20/2024 Depression Answer Date Recorded Patient Health Questionnaire-2 Score 2 08/13/2024 Internet Access Answer Date Recorded Internet Access Q1 Yes 04/27/2024 Internet Access Q2 Not on file 04/27/2024 Comments Unknown Sex and Gender Information Value Date Recorded Sex Assigned at Female 06/25/2022 10:18 AM EDT Legal Sex Female 10:18 AM EDT Gender Identity Female 06/25/2022 10:18 AM EDT Sexual Orientation Straight 06/25/2022 10 :18 AM EDT Last Filed Vital Signs Vital Sign Reading Time Taken Comments Blood Pressure 118/69 10/09/2024 2:07 PM EST Pulse 91 10/09/2024 2:07 PM EST Temperature 36.4 ??C (97.5 ??F) 10/09/2024 2:07 PM ES T Respiratory Rate 17 10/09/2024 2:07 PM EST Oxygen Saturation 99% 10/09/2024 2:07 PM EST Inhaled Oxygen Concentration - - Weight 76.5 kg (168 lb 9.6 oz) 10/09/2024 2:07 P M EST Height 157.5 cm (5' 2 ) 10/06/2024 2:27 PM EST Body Mass Index 30.84 10/06/2024 2:27 PM EST Plan of Treatment Health Maintenance Due Date Last Done Comments Family Planning (PISQ) 2010 DTaP/Tdap/Td Vaccines (4 - Td or Tdap) 03/03/2024 03/03/2014, 02/07/2005, 05/05/1996, Additional history exists COVID-19 Vaccine ( season) 2024 12/24/2020, 12/03/2020 Influenza Vaccine (#1) 2024 06/05/2019, 2009 Alcohol/Substance Use Screening 02/19/2025 02/20/2024 SDOH Screening 02/19/2025 02/20/2024 Tobacco Screening 02/19/2025 02/20/2024 Depression Screening 08/13/2025 08/13/2024, 08/13/20 24 Pap Smear 04/19/2028 04/19/2023 Zoster Vaccines (1 of 2) 2045 RSV Patients and Patients Aged 60 years or older (1 - 1-dose 75+ series) 2070 IPV Vaccines Completed 02/07/2005, 04/26, 03/12/1996, Additional history exists HPV Vaccines Completed 10/15/2008, 10/24, 01/30/2007 Meningococcal Vaccine Completed 03/03/2014, 007 Hepatitis B Vaccines Completed 03/28/2017, 02/07/2005, 04/14/1996, Additional history exists Hepatitis C Screening Completed 11/21/2022, 022 HIV Screening Completed 04/05/2023, 05/24/2022 HIB Vaccines Aged Out No longer eligi ble based on patient's age to complete this topic Hepatitis A Vaccines Aged Out No long er eligible based on patient's age to complete this topic Pneumococcal Vaccine: Pediatrics (0 to 5 Years) and At-Risk Patients (6 to 49) Years) Aged Out No longer eligible based on patient's age to complete this topic RSV under 20 months Aged Out No longe r eligible based on patient's age to complete this topic Rotavirus Vaccines Aged Out No longer eligible based on patient's age to complete this topic Procedures Procedure Name Priority Date/Time Associated Diagnosis Comments HM PAP/HPV Routine 04/19/2023 HIV ANTIBODY/ANTIGEN ([place] DPH) Routine 04/05/2023 2:54 PM EDT Vaginal discharge HEPATITIS PANEL, GENERAL Routine 11/21/2022 10:03 AM EDT Chronic bilateral low back pain without sciatica Screen for STD (sexually transmitted disease) Hirsutism from Last 3 Months or Most Recently Relevant to Health Maintenance Results * Hm Pap Smear (04/19/2023) Pap Negative for intraephithelial lesion or malignancy Negative for intraephithelial lesion or malignancy, Other HPV Undetected Undetected, Indeterminate, Quantitative, Not Detected us Historical Provider HEALTH MAINTENANCE Final Result * HIV Ab/Ag ([place] DPH) (04/05/2023 2:54 PM EDT) HIV AB/AG Nonreactive Nonreactive [facility] Comment:HIV-1 p24 Ag and/or HIV-1/HIV-2 Ab not detected.A test result that is nonreactive does not exclude thepossibility of exposure to or infection with HIV-1 and/orHIV-2. Nonreactive results in this assay for individualswith prior exposure to HIV-1 and/or HIV-2 may be due toantigen and antibody levels that are below the limit ofdetection of this assay.The Malin Seat Pack Inspector HIV Ag/Ab Combo assay result andsupplemental assay results should be interpreted inconjunction with the patient's clinical presentation,history and other laboratory results. If the results areinconsistent with clinical evidence, additional testing issuggested to confirm the result. Blood 04/05/2023 2:54 PM EDT 04/05/2023 4:38 PM EDT Mariza Brewster [facility] LAB BLOOD ORDERABLES Final Res ult [facility] [address] [place] [phone] * (ABNORMAL) Hepatitis Panel, General (11/21/2022 10:03 AM EDT) Pathologist [facility] Hepatitis A Antibody Total NON-REACT KALI NON-REACT [facility] [facility] Comment: For additional information, please refer to http://education.Simplilearn/faq/YPL681 (This link is being provided for informational/ educational purposes only.) Hepatitis B Surface Antibody QL REACTIVE( A) NON-REACT KALI [employer] [facility] Hepatitis B Surface Ag NON-REACT KALI NON-REACT KALI [employer] [facility] Hepatitis B Core Antibody Total NON-REACT KALI NON-REACT KALI [employer] [facility] Hepatitis C Antibody NON-REACT KALI NON-REACT KALI [employer] Index 0.04 <1.00 [employer] Comment: HCV antibody was non-reactive. There is no laboratory evidence of HCV infection. In most cases, no further action is required. However, if recent HCV exposure is suspected, a test for HCV RNA (test code 75781) is suggested. For additional information please refer to http://education.Simplilearn/faq/ORF18v8 (This link is being provided for informational/ educational purposes only.) 11/21/2022 10:0 3 AM EDT 11/21/2022 10:03 AM EDT Narrative [facility] - 11/22/2022 6:23 AM EDT FASTING:NO FASTING: NO us Mima Dixon MD LAB BLOOD ORDERABLES Final Re sult [facility] [address], [place] [address] [employer] [facility] [address] [place] [address] from Last 3 Months or Most Recently Relevant to Health Maintenance Insurance [facility] [place] [id number] Care Teams Fender Mechanic Relationship Specialty Start Date End Date Mima Dixon MD [address] [place] [address] [place] [id number] PCP - General Family Medicine 08/26/18
--- OUTSIDE RECORDS SUMMARY | 2024-11-09 10:25 | XMS_ITS | Encounter Summary ---
Author Organization [employer] Address [address] [facility] [address] [place] [address] Care Team Providers Care Director Auto Name Role Phone Mima Dixon MD Primary Care Provider [phone] Encounter Details Date Type Department Care Team (Late st Contact Info) Description 02/21/2024 Orders Only [facility] [address] [place] [address] ProviderBryan MD Social History Tobacco Use Types Packs/Day Years Used Date Smoking Tobacco: Never Passive Smoke Exposure: Never Smokeless Tobacco: Never Comments:Smokes Hookah Depression Answer Date Recorded Patient Health Questionnaire-9 Score 10 02/20/2024 Patient Health Questionnaire-9 Score 10 02/20/2024 Last PHQ-9: Questionnaire Data Not on file 0 02/20/2024 Housing Stability Answer Date Recorded What is your housing situation today? I have yoan cain 02/20/[address] you [...] Date Recorded Patient Health Questionnaire-2 Score 2 02/20/2024 Comments Unknown Sex and Gender Information Value Date Recorded Sex Assigned at Female 06/25/2022 10:18 AM EDT Legal Sex Female 10:18 AM EDT Gender Identity Female 06/25/2022 10:18 AM EDT Sexual Orientation Straight 06/25/2022 10 :18 AM EDT documented as of this encounter Plan of Treatment Not on file documented as of this encounter Procedures Procedure Name Priority Date/Time Associated Diagnosis Comments CYTOLOGY, CONVENTIONAL PAP SMEAR, 1 SLIDE Routine 04/19/2023 2:05 PM EDT documented in this encounter Results * Cytology, Conventional Pap Smear, 1 Slide (04/19/2023 2:05 PM EDT) us Historical Provider LAB CYTOLOGY ORDERABLES F inal Result documented in this encounter Visit Diagnoses Not on filedocumented in this encounter Additional Health Concerns Assessment Noted Time PHQ-9 Depression Total Score: 10 024 3:20 PM EDT documented as of this encounter Care Teams Director Auto Relationship Specialty Start Date End Date Mima Dixon MD [address] [place] [id number] PCP - General Family Medicine 08/26/18 documented as of this encounter
--- OUTSIDE RECORDS SUMMARY | 2024-11-09 10:25 | XMS_ITS | Encounter Summary ---
Author Organization [employer] Address [address] [facility] [address] [place] [address] Care Team Providers Care Thread Inspector Name Role Phone Mima Dixon MD Primary Care Provider [phone] Reason for Visit * Reason Onset Date Comments Medication Question 02/21/2024 Encounter Details Date Type Department Care Team ([facility] st Contact Info) Description 02/21/2024 Telephone [facility] [address] [place] [address] Mima Dixon MD [address] [place] [phone] Medication Question Social History Tobacco Use Types Packs/Day Years [...] Telephone Encounter - Wing Sheila RN - 02/25/2024 12:56 PM EDT Tc to pt to pass on message below about medication and alcohol consumption. Pt verbalized understanding and agreement with plan. * Telephone Encounter - Wing Sheila RN - 02/25/2024 9:43 AM EDT Please advise tc from pt who is inquiring about alcohol consumption while taking buPROPion. Pt states she understands she is either suppose to not consume or limit alcohol consumption. Pt states she has around three drink/mixed cocktails over the weekend. Reported to pt that would message provider to inquired for clarification on alcohol consumption while on buPROPion. Pt verbalized understandingand agreement with plan. * Telephone Encounter - Mauro Rivera - 02/21/2024 12:35 PM EDT Tc from pt requesting call back to discuss buPROPion XL (Wellbutrin XL) 150 MG 24 hr tablet . Please contact pt at [phone]. documented in this encounter Plan of Treatment Not on file documented as of this encounter Visit Diagnoses Not on filedocumented in this encounter Additional Health Concerns Assessment Noted Time PHQ-9 Depression Total Score: 10 024 3:20 PM EDT documented as of this encounter Care Teams Thread Inspector Relationship Specialty Start Date End Date Mima Dixon MD [address] [place] [id number] PCP - General Family Medicine 08/26/18 documented as of this encounter
--- OUTSIDE RECORDS SUMMARY | 2024-11-09 10:25 | XMS_ITS | Encounter Summary ---
Author Organization [employer] Address [address] [facility] [address] [place] [address] Care Team Providers Care Transfer And Pumphouse Operator Name Role Phone Mima Dixon MD Primary Care Provider [phone] Reason for Visit * Reason Onset Date Comments Change dates 09/03/2023 Encounter Details Date Type Department Care Team ([facility] Contact Info) Description 09/03/2023 Telephone [facility] [address] [place], [place] [phone] Mima Dixon MD [address] [place] [address] Change dates Social History Tobacco Use Types Packs/Day Years [...] encounter Miscellaneous Notes * Telephone Encounter - Dedra Cortés - 09/18/2023 10:57 AM EST Ronni raymond just saw this message , dates was changed. Thank you. Tc from pt requesting if provider could change dates on her medical leave. States that start date was supposed to be on 08/21/23-09/04/23 but is requesting if started date could be change to 08/14/23-09/04/23 due to originally using her vacation time for the first week. Please contact pt @ [phone] * Telephone Encounter - Justinelliot Woody Shine - 09/03/2023 3:25 PM EST Tc from pt requesting if provider could change dates on her medical leave. States that start date was supposed to be on 08/21/23-09/04/23 but is requesting if started date could be change to 08/14/23-09/04/23 due to originally using her vacation time for the first week. Please contact pt @ [phone] documented in this encounter Plan of Treatment Not on file documented as of this encounter Visit Diagnoses Not on filedocumented in this encounter Additional Health Concerns Assessment Noted Time PHQ-9 Depression Total Score: 9 08/06/20 3:52 PM EST documented as of this encounter Care Teams Transfer And Pumphouse Operator Relationship Specialty Start Date End Date Mima Dixon MD [address] [place] [phone] PCP - General Family Medicine 08/26/18 documented as of this encounter
== END 2024-11-09 10:00 | disposition home or self-care (01) ==
LOC: HO.ENCR 09:35
PROVIDERS: PCP Pediatrics; Visit Provider Student in an Organized Health Care Education/Training Program
DX: L68.0 Hirsutism (principal); E66.9 Obesity, unspecified
CPT/HCPCS: 99213

== ENCOUNTER → 2024-11-09 09:35 | Outpatient (BNVA) | payer MEDICAID, SELFPAY | PROVIDERS: PCP Pediatrics; Visit Provider Student in an Organized Health Care Education/Training Program | DX: L68.0 Hirsutism (principal); E66.9 Obesity, unspecified; Z68.29 Body mass index [BMI] 29.0-29.9, adult | CPT/HCPCS: 99212 ==

== ENCOUNTER 2025-02-09 09:07 | Outpatient (AMB) | payer OTHER, SELFPAY ==
--- NOTE | 2025-02-09 09:08 | A.OFFVIS_ITS ---
Vital Signs 02/09/25 09:09 Height 5 ft 2 in Weight 148 lb 12.992 oz BMI 27.2 BP 92/56 L Blood Pressure Location Lt brachial Position Sitting Pulse 79 Pulse Source Pulse Oximeter Pulse Oximetry (%) 97 Oxygen Delivery Method Room Air Intake Visit Reasons: hirsutism Intake Note: Patient present today for hirsutism office visit. Automotive Engineer Required: No Accompanied by: Self / Same As Patient Allergies No Known Allergies Allergy (Verified 02/09/25 09:20) Medication List - Last Reconciled 02/09/25 by Korin Minaya MD sennosides (senna) 8.6 mg PO DAILY tirzepatide (weight loss) (Zepbound) 5 mg (0.5 mL) subcut QWEEK HPI Comments Details: 29-year-old female coming in today for follow up of hirsutism and obesity . HPI from prior visit presents with complaints of hirsutism, acne, hair loss. She denies history of HTN, prediabetes. She has family history of paternal grandmother having a pacemaker, but no one with DM, stroke, [place]. . Hirsutism: some chin hair she plucks, waxes upper lip, no excessive hair on abdomen or breast. Laser treatment for hair of bikini area and axillae. Legs shave, doesnt do anything on arms. Ferrimen Shin score of 8 done with patient. Reports easy bruising, no proximal muscle weakness. No abdominal striae. Weight 171 lbs BMI 31.1, highest per patient. Feels it has increased in the las t 2 years, before she used to be 150 lbs when she works out. Exercises 6 times a week 1 hr cardio 1 hr weights. Diet : 3 meals a day sometimes snacks, fruits mostly, sometimes chips or cookies Denies hair loss on scalp. Acne: 2016 treated with acutane, 2019 again acutane, now again since last year, seeing dermatology , mostly on the cheeks Acne now better Started spironolactone 75 mg 3 months ago through PCP. she has a copper IUD since the past 3-4 years. menstruation: regular monthly periods, heavy 2-3 days then terminal carman, just last month she had 2 cycles, does have some spotting but got diagnosed with bacterial vaginosis when she recently saw explosives engineer and says they commented on vaginal inflammation. Menarche: 12 years LMP : 05/15 :1 : 1 Liposuction 2020 Medications: Spironolactone 75 mg daily stopped in May 2024, Used to be on OCPs but got while on it Cosmetic therapies: Laser hair removal, waxing, threading, plucking She had an ultrasound of her pelvis in February 2024, I do not have the report scanned in but patient showed me a picture of the report on her phone today08/10/24 which showed no polycystic ovaries , normal appearance of the ovaries and a subserosal fundal fibroid 1.3 x 0.9 x 1.3 cm done at [facility] 03/03/24. Interval history 06/25/24 She reports she has stopped the spironolactone 75 mg daily a few weeks back in May 2024 due to strong smell in urine. She could not tolerate it. She feels she is comfortable with cosmetic therapies. Menstruation continues to be regular. She has lost 4 lb with lifestyle modification. FSH, LH, prolactin levels normal. Blood work from 06/19/2024 shoed normal levels of testosterone and 24 hour urine cortisol levels. A1c was normal. Interval history 08/10/24 BMI 31.1 up from 30.6 kg/m2 Weight up at 171 from 167s lbs Exercise 3 miles a day walking daily , also weight training 4 times a week, hot yoga once a week Diet : trying to do a calorie deficit with calori counter trying to do 500 calories almost daily Has copper IUD Interval history 11/09/2024 BMI: 29.8 kg per m2 down from 31.1 kg per m2 July 2024 Weight at 162 lb down from 171 lb in July 2024 (3 months) Exercise: Exercise 4 miles (10 k steps) a day walking daily , also weight training 5 times a week, hot yoga three times a week Diet: Diet : trying to do a calorie deficit with calori counter trying to do 500 calories almost daily Currently on Zepbound 5 mg weekly, earlier had trouble with constipation now improved with stool softeners. Interval history 02/09/2025 BMI 27.2 kg per m2, weight 149 lb In October I had increased this up down to 7.5 mg weekly, however she had concerns about losing weight too quickly, so then in beginning of December reduced down to 5 mg weekly. Her weight has been stable since the beginning of December. Exercise: Exercise 2 miles walking daily , also weight training 5 times a week, hot yoga three times a week Diet: Diet : trying to do a calorie deficit with calori counter trying to do 500 calories almost daily Physical exam General: sitting comfortably in no acute distress HEENT: normocephalic/atraumatic, moist oral mucosa Cardiac: normal heart sounds Pulm: normal breath sounds B/L, no added breath sounds Abd: not distended, no tenderness Extremities: no edema, no signs of myxedema Neuro: AAO x3, Speech: normal, no facial droop, moving all 4 extremities Laboratory Tests 12/24/23 06/19/24 12:09 12:50 Hemoglobin A1c % 4.9 FSH 11.0 Luteinizing Hormone 22.0 Prolactin 16.9 DHEA Sulfate 256 262 17-Hydroxyprogesterone 144 Laboratory Tests 12/24/23 12/24/23 12:07 12:09 Triglycerides 85 Cholesterol 165 LDL Cholesterol, Calc 107 H HDL Cholesterol 41 TSH 1.44 DHEA Sulfate 256 Laboratory Tests 06/19/24 06/19/24 10:00 12:50 FSH 11.0 Luteinizing Hormone 22.0 Total Testosterone 19 Fr Testosterone Dialys 2.7 Androstenedione 146 DHEA Sulfate 262 17-Hydroxyprogesterone 144 Urine Total Volume 850 Ur 24 Hour Volume 850 Ur Creatinine mg/dL 181.99 Ur Creatinine 24 Hour 1.42 Ur Free Cortisol 24 Hr 15.2 [facility] Medical History (Updated 05/18/24 @ 11:09 by Korin Minaya MD) Obesity (BMI 30.0-34.9) Hirsutism Surgical History History of plastic surgery Family History Mother No problems noted. Father Hypertension Social History Alcohol intake: current Comment: Socially Patient Tobacco Use Status: Never used Tobacco Physical Exam Vital Signs: Last Vital Signs Pulse 79 02/09/25 09:09 BP 92/56 L 02/09/25 09:09 Pulse Ox 97 02/09/25 09:09 Oxygen Delivery Method Room Air 02/09/25 09:09 BMI result Body Mass Index 27.2 Assessment & Plan Assessment & Plan (1) Hirsutism: Code(s): L68.0 - Hirsutism Category: Medical Plan: Patient with a history hirsutism, acne. Labs showed normal thyroid function, normal DHEA-S. . She had an ultrasound of her pelvis/ovaries in February 2024 at [facility] which did not show polycystic ovaries. She has stopped taking the spironolactone 75 mg daily in May 2024 due to strong smell in the urine, which improved after stopping the medication. She is not interested in this at this time and is okay with pursuing cosmetic therapies such as plucking/shaving. She is not on oral contraceptive pills, she has a copper IUD, her periods are regular. She previously got and had to have an on the oral contraceptive pill hence she is not on those. She has never tried metformin. No diagnosis of diabetes, prediabetes, hypertension. Normal prolactin, FSH, LH, 17 hydroxyprogesterone and DHEA-S levels, testosterone levels. Normal 24 hour urine cortisol level. Ferrimen Gellway score 8, hirsutism is mild. She is using cosmetic therapies such as laser but only requires plucking for excessive facial hair. she can continue that. Plan: -continue cosmetic measures -if interested in spironolactone again please let us know (2) Obesity (BMI 30.0-34.9): Code(s): E66.9 - Obesity, unspecified Category: Medical Plan: BMI: 27.2 kg per m2 down from 31.1 kg per m2 July 2024 Weight at 148 lb down from 171 lb in July 2024 (6 months) Highest BMI per patient was 31. She used to be 152 lb, She has made extensive lifestyle modification in the pastyear She is maintaining a 500 calorie deficit daily on her phone apps , walking 2 miles daily, also doing resistance training in addition to that and hot yoga. No acromegalic features. 24 hour urine cortisol was normal. Started Zepbound Aug 2024, humberto on 5 mg weekly dose , She drinks alcohol occasionally. Does not have any history of gallstones. Denies any family or personal history of medullary thyroid cancer. Plan: -continue Zepbound 5 mg weekly injection - Continue lifestyle modification as you are with calorie deficit and exercise as mentioned above Follow up in 12 weeks Plan see above Medications: Refilled tirzepatide (weight loss) (Zepbound) 5 mg (0.5 mL) subcut QWEEK 2 mL 8RF Coding Level of Care Code Est Pt Level 3 (41787) Diagnoses Hirsutism L68.0 Obesity (BMI 30.0-34.9) E66.9
[2025-02-09 09:09] VITALS: BP 92/56; PULSE 79; O2SAT 97; BMI 27.2
--- OUTSIDE RECORDS SUMMARY | 2025-02-09 09:44 | XMS_ITS | Clinical Summary ---
Author Organization [employer] Address [address] [place] [address] Care Team Providers Care [employer] Consultant Name Role Phone Mima Dixon MD Primary Care Provider [phone] Allergies No known active allergies Medications * This document contains information received from the source organization and may not represent a complete record from that organization. valACYclovir (Valtrex) 1 g tablet Take 1,000 mg by mouth every 12 (twelve) hours. 2 Active cholecalciferol (Vitamin D-3) 1.25 MG (35971 UT) capsule Take by mouth 1 (one) time per week. 3 Active copper (Paragard) IUD Take by intrauterine route. Active minocycline 100 MG capsule TAKE 1 CAPSULE BY MOUTH TWICE DAILY WITH A NON DAIRY SNACK AND FULL GLASS OF WATER 3 Active Retin-A 0.025 % gel APPLY A PEA SIZED AMOUNT TO THE ENTIRE FACE ONCE DAILY AT BEDTIME 3 Active valACYclovir (Valtrex) 1 g tablet take 2 tablet by oral route every 12 hours for 1 day 2 Active cetirizine (ZyrTEC) 10 MG tablet Take 1 tablet (10 mg) by mouth in the morning. 10 tablet 3 Active ketotifen (Zaditor) 0.025 % ophthalmic solution INSTILL 1 DROP INTO BOTH EYES TWICE DAILY NEEDED 3 Active diclofenac (Cataflam) 50 MG tablet Once a day as needed 20 tablet 3 3 Active famotidine (Pepcid) 20 MG tabletIndication s:Generalized abdominal pain Take 1 tablet (20 mg) by mouth 2 times daily. 60 tablet 11 5 026 Active sennosides (Senokot) 8.6 MG tabletIndication s:Constipation, unspecified constipation type TAKE 1 TABLET BY MOUTH EVERY DAY 30 tablet 3 5 Active Active Problems Problem Noted Date Diagnosed Date [...] Health Integration Plan Internal Follow up with [facility], External Pt will be referred outside the [facility] once she changes her insurance in 2023, Patient Self Plan Patient to utilize skills provided in intervention , Patient [facility] as needed, Patient to engage in [...] External Pt will be referred outside the [facility] once she changes her insurance in 2023, Patient Self Plan Patient to utilize skills provided in intervention , Patient to reach out to [facility] team as needed, Patient to engage in [...] have services similar to her chiropracter in [facility] and we can send a referral when [...] Encounters Date Type Department Care Team Description 11/25/2024 9:00 AM EDT Telemedicine [facility] [address] [place] [address] Mima Dixon MD Anxiety (Primary Dx); Dietary counseling; Exercise counseling; Overweight (BMI 25.0-29.9) 11/25/2024 Travel 11/23/[address] [facility] [address] [place] [address] Mima Dixon MD Chart Prep 11/17/[address] [facility] [address] [place] [address] Mima Dixon MD Constipation, unspecified constipation type from Last 3 Months Immunizations Immunization Administration Dates Next Due DTP 02/07/2005,05/05/1996,1995 HPV, [...] your housing situation today? I have yoan sing 02/20/[address] you li [...] EST Inhaled Oxygen Concentration - - Weight 70.3 kg (155 lb) 11/25/2024 9:15 AM EDT Height 157.5 cm (5' 2 ) 10/06/2024 2:27 PM EST Body Mass Index 28.35 10/06/2024 2:27 PM EST Plan of Treatment Health Maintenance Due Date Last Done Comments Disability Screening 1995 Family Planning (PISQ) 2010 DTaP/Tdap/Td Vaccines (4 - Td or Tdap) 03/03/2024 03/03/2014, 02/07/2005, 05/05/1996, Additional history exists COVID-19 Vaccine ( - season) 2024 12/24/2020, 12/03/2020 Alcohol/Substance Use Screening 02/19/2025 02/20/2024 SDOH Screening 02/19/2025 02/20/2024 Tobacco Screening 02/19/2025 02/20/2024 Influenza Vaccine (Season Ended) 2025 06/05/2019, 08/15/2010 Depression Screening 08/13/2025 08/13/2024, 08/13/20 24 Pap [...] on patient's age to complete this topic Meningococcal B Vaccine Aged Out No l onger eligible based on patient's age to complete this topic Pneumococcal Vaccine: Pediatrics (0 to 5 Years) and At-Risk Patients (6 to 49) Years Aged Out No longer eligible based on [...] HPV Undetected Undetected, Indeterminate, Quantitative, Not Detected Historical Provider MD HEALTH MAINTENANCE Final Result * HIV Ab/Ag (LANCE GARCIA) (04/05/2023 2:54 PM EDT) HIV AB/AG Nonreactive Nonreactive [facility] Comment:HIV-1 p24 Ag and/or HIV-1/HIV-2 Ab not detected.A test result that is nonreactive does not exclude thepossibility of exposure to or infection with HIV-1 and/orHIV-2. Nonreactive results in this assay for individualswith prior exposure to HIV-1 and/or HIV-2 may be due toantigen and antibody levels that are below the limit ofdetection of this assay.The [employer] HIV Ag/Ab Combo assay result andsupplemental assay results should be interpreted inconjunction with the patient's clinical presentation,history and other laboratory results. If the results areinconsistent with clinical evidence, additional testing issuggested to confirm the result. Blood 04/05/2023 2:54 PM EDT 04/05/2023 4:38 PM EDT Mariza BONILLA LAB BLOOD ORDERABLES Final Res ult [facility] [address] [place] [address] [phone] * (ABNORMAL) Hepatitis Panel, General (11/21/2022 10:03 AM EDT) Hepatitis A Antibody Total NON-REACT KALI NON-REACT KALI [facility] [employer] Comment: For additional information, please refer to http://[employer]/faq/SJW219 (This link is being provided for informational/ educational purposes only.) Hepatitis B Surface Antibody QL REACTIVE( A) NON-REACT KALI [facility] [employer] Hepatitis B Surface Ag NON-REACT KALI NON-REACT KALI [facility] [employer] Hepatitis B Core Antibody Total NON-REACT KALI NON-REACT KALI [facility] [employer] Hepatitis C Antibody NON-REACT KALI NON-REACT KALI [facility] [employer] Index 0.04 <1.00 [facility] [employer] Comment: HCV antibody was non-reactive. There is no laboratory evidence of HCV infection. In most cases, no further action is required. However, if recent HCV exposure is suspected, a test for HCV RNA (test code 34698) is suggested. For additional information please refer to http://[employer]/faq/HML99w6 (This link is being provided for informational/ educational purposes only.) 11/21/2022 10:0 3 AM EDT 11/21/2022 10:03 AM EDT Narrative [facility] - 11/22/2022 6:23 AM EDT FASTING:NO FASTING: NO Mima Dixon MD LAB BLOOD ORDERABLES Final Re sult [facility] [address], [place] [address] [facility] [address] [place] [address] from Last 3 Months or Most Recently Relevant to Health Maintenance Insurance [facility] Care Teams [employer] Consultant Relationship Specialty Start Date End Date Mima Dixon MD [address] [place] [id number] PCP - General Family Medicine 08/26/18
== END 2025-02-09 09:37 | disposition home or self-care (01) ==
LOC: HO.ENCR 09:07
PROVIDERS: PCP Pediatrics; Visit Provider Student in an Organized Health Care Education/Training Program
DX: L68.0 Hirsutism (principal); E66.9 Obesity, unspecified
CPT/HCPCS: 99213

== ENCOUNTER → 2025-02-09 09:07 | Outpatient (BNVA) | payer MEDICAID, SELFPAY | PROVIDERS: PCP Pediatrics; Visit Provider Student in an Organized Health Care Education/Training Program | DX: L68.0 Hirsutism (principal); E66.9 Obesity, unspecified | CPT/HCPCS: 99212 ==

== ENCOUNTER 2025-05-11 09:07 | Outpatient (AMB) | payer OTHER, SELFPAY ==
[2025-05-11 09:08] VITALS: BP 90/60; PULSE 77; O2SAT 99; BMI 27.9
--- NOTE | 2025-05-11 09:08 | MHC.OFFVIS ---
Vital Signs 05/11/25 09:08 Height 5 ft 2 in Weight 152 lb 5.431 oz BMI 27.9 BP 90/60 Blood Pressure Location Lt brachial Position Sitting Pulse 77 Pulse Source Pulse Oximeter Pulse Oximetry (%) 99 Oxygen Delivery Method Room Air Intake Visit Reasons: hirsutism Intake Note: Patient present today for hirsutism office visit. Supervisor Cutting And Boning Required: No Accompanied by: Self / Same As Patient Allergies No Known Allergies Allergy (Verified 05/11/25 09:12) Medication List - Last Reconciled 05/11/25 by Korin Minaya MD sennosides (senna) 8.6 mg PO DAILY tirzepatide (weight loss) (Zepbound) 5 mg (0.5 mL) subcut QWEEK viloxazine ER (Qelbree) 200 mg PO DAILY HPI Comments Details: 29-year-old female coming in today for follow up of hirsutism and obesity . HPI from prior visit presents with complaints of hirsutism, acne, hair loss. She denies history of HTN, prediabetes. She has family history of paternal grandmother having a pacemaker, but no one with DM, stroke, [place]. . Hirsutism: some chin hair she plucks, waxes upper lip, no excessive hair on abdomen or breast. Laser treatment for hair of bikini area and axillae. Legs shave, doesnt do anything on arms. Ferrimen Shin score of 8 done with patient. Reports easy bruising, no proximal muscle weakness. No abdominal striae. Weight 171 lbs BMI 31.1, highest per patient. Feels it has increased in the last 2 years, before she used to be 150 lbs when she works out. Exercises 6 times a week 1 hr cardio 1 hr weights. Diet : 3 meals a day sometimes snacks, fruits mostly, sometimes chips or cookies Denies hair loss on scalp. Acne: 2016 treated with acutane, 2019 again acutane, now again since last year, seeing dermatology , mostly on the cheeks Acne now better Started spironolactone 75 mg 3 months ago through PCP. she has a copper IUD since the past 3-4 years. 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 Menarche: 12 years LMP : 05/15 :1 : 1 Liposuction 2020 Medications: Spironolactone 75 mg daily stopped in May 2024, Used to be on OCPs but got while on it Cosmetic therapies: Laser hair removal, waxing, threading, plucking She had an ultrasound of her pelvis in February 2024, I do not have the report scanned in but patient showed me a picture of the report on her phone today08/10/24 which showed no polycystic ovaries , normal appearance of the ovaries and a subserosal fundal fibroid 1.3 x 0.9 x 1.3 cm done at [facility] 03/03/24. Interval history 06/25/24 She reports she has stopped the spironolactone 75 mg daily a few weeks back in May 2024 due to strong smell in urine. She could not tolerate it. She feels she is comfortable with cosmetic therapies. Menstruation continues to be regular. She has lost 4 lb with lifestyle modification. FSH, LH, prolactin levels normal. Blood work from 06/19/2024 shoed normal levels of testosterone and 24 hour urine cortisol levels. A1c was normal. Interval history 08/10/24 BMI 31.1 up from 30.6 kg/m2 Weight up at 171 from 167s lbs Exercise 3 miles a day walking daily , also weight training 4 times a week, hot yoga once a week Diet : trying to do a calorie deficit with calori counter trying to do 500 calories almost daily Has copper IUD Interval history 11/09/2024 BMI: 29.8 kg per m2 down from 31.1 kg per m2 July 2024 Weight at 162 lb down from 171 lb in July 2024 (3 months) Exercise: Exercise 4 miles (10 k steps) a day walking daily , also weight training 5 times a week, hot yoga three times a week Diet: Diet : trying to do a calorie deficit with calori counter trying to do 500 calories almost daily Currently on Zepbound 5 mg weekly, earlier had trouble with constipation now improved with stool softeners. Interval history 02/09/2025 BMI 27.2 kg per m2, weight 149 lb In October I had increased this up down to 7.5 mg weekly, however she had concerns about losing weight too quickly, so then in beginning of December reduced down to 5 mg weekly. Her weight has been stable since the beginning of December. Exercise: Exercise 2 miles walking daily , also weight training 5 times a week, hot yoga three times a week Diet: Diet : trying to do a calorie deficit with calori counter trying to do 500 calories almost daily Interval history 05/11/2025 BMI 27.9 kg per m2, weight 152 lb Currently on Zepbound 5 mg weekly She is planning to start a medication for ADHD thinks that we will also lower her appetite Exercise: Exercise 2 miles walking daily , also weight training 5 times a week, hot yoga three times a week Diet: Diet : trying to do a calorie deficit with calori counter trying to do 500 calories almost daily Physical exam General: sitting comfortably in no acute distress HEENT: normocephalic/atraumatic, moist oral mucosa Cardiac: normal heart sounds Pulm: normal breath sounds B/L, no added breath sounds Abd: not distended, no tenderness Extremities: no edema, no signs of myxedema Neuro: AAO x3, Speech: normal, no facial droop, moving all 4 extremities Laboratory Tests 12/24/23 06/19/24 12:09 12:50 Hemoglobin A1c % 4.9 FSH 11.0 Luteinizing Hormone 22.0 Prolactin 16.9 DHEA Sulfate 256 262 17-Hydroxyprogesterone 144 Laboratory Tests 12/24/23 12/24/23 12:07 12:09 Triglycerides 85 Cholesterol 165 LDL Cholesterol, Calc 107 H HDL Cholesterol 41 TSH 1.44 DHEA Sulfate 256 Laboratory Tests 06/19/24 06/19/24 10:00 12:50 FSH 11.0 Luteinizing Hormone 22.0 Total Testosterone 19 Fr Testosterone Dialys 2.7 Androstenedione 146 DHEA Sulfate 262 17-Hydroxyprogesterone 144 Urine Total Volume 850 Ur 24 Hour Volume 850 Ur Creatinine mg/dL 181.99 Ur Creatinine 24 Hour 1.42 Ur Free Cortisol 24 Hr 15.2 [facility] Medical History (Updated 05/18/24 @ 11:09 by Korin Minaya MD) Obesity (BMI 30.0-34.9) Hirsutism Surgical History History of plastic surgery Family History Mother No problems noted. Father Hypertension Social History Alcohol intake: current Comment: Socially Patient Tobacco Use Status: Never used Tobacco Assessment & Plan Assessment & Plan (1) Hirsutism: Code(s): L68.0 - Hirsutism Category: Medical Plan: Patient with a history hirsutism, acne. Labs showed normal thyroid function, normal DHEA-S. . She had an ultrasound of her pelvis/ovaries in February 2024 at [facility] which did not show polycystic ovaries. She has stopped taking the spironolactone 75 mg daily in May 2024 due to strong smell in the urine, which improved after stopping the medication. She is not interested in this at this time and is okay with pursuing cosmetic therapies such as plucking/shaving. She is not on oral contraceptive pills, she has a copper IUD, her periods are regular. She previously got and had to have an on the oral contraceptive pill hence she is not on those. She has never tried metformin. No diagnosis of diabetes, prediabetes, hypertension. Normal prolactin, FSH, LH, 17 hydroxyprogesterone and DHEA-S levels, testosterone levels. Normal 24 hour urine cortisol level. Ferrimen Gellway score 8, hirsutism is mild. She is using cosmetic therapies such as laser but only requires plucking for excessive facial hair. she can continue that. Plan: -continue cosmetic measures -if interested in spironolactone again please let us know (2) Obesity (BMI 30.0-34.9): Code(s): E66.9 - Obesity, unspecified Category: Medical Plan: BMI: 27.2 kg per m2 down from 31.1 kg per m2 July 2024 Weight at 152 lb 05/11/2025 which is up from 148 lb in January 2025 which was down from 171 lb in July 2024 (6 months) Highest BMI per patient was 31. She used to be 152 lb, She has made extensive lifestyle modification in the pastyear She is maintaining a 500 calorie deficit daily on her phone apps , walking 2 miles daily, also doing resistance training in addition to that and hot yoga. No acromegalic features. 24 hour urine cortisol was normal. Started Zepbound Aug 2024, humberto on 5 mg weekly dose , She drinks alcohol occasionally. Does not have any history of gallstones. Denies any family or personal history of medullary thyroid cancer. Plan: -increase Zepbound to 7.5 mg weekly injection - Continue lifestyle modification as you are with calorie deficit and exercise as mentioned above Follow up in 10 -12 weeks Plan see above Medications: New tirzepatide (weight loss) (Zepbound) 7.5 mg (0.5 mL) subcut QWEEK 2 mL 5RF Discontinued tirzepatide (weight loss) (Zepbound) Discontinued Reason: Doctor's Order 5 mg (0.5 mL) subcut QWEEK 2 mL 8RF Coding Level of Care Code Est Pt Level 4 (46128) Diagnoses Hirsutism L68.0 Obesity (BMI 30.0-34.9) E66.9
--- OUTSIDE RECORDS SUMMARY | 2025-05-11 11:27 | XMS_ITS | Clinical Summary ---
Author Organization [facility] Address [address] [place] [address] Phone Care Team Providers Care Ultimate Hoops Scoreboard Operator Name Role Phone Mima Dixon MD Primary Care Provider [phone] Medications AKLIEF 0.005 % cream Apply 1 Application topically nightly at bedtime. 4 Active spironolactone (ALDACTONE) 25 MG tablet Take 1 tablet by mouth every morning. 4 Active buPROPion (WELLBUTRIN XL) 150 MG ER 24 hr tablet Take 150 mg by mouth every morning. 4 Active Social History Tobacco Use Types Packs/Day Years Used Date Smoking Tobacco: Never Assessed Education Answer Date Recorded Are you interested in more education? Not on litzy e 12/10/2023 Are you concerned about learning? Not on file 12/10/2023 No 12/10/2023 No 12/10/2023 Digital Access Answer Date Recorded No 12/10/2023 No 12/10/2023 Reliable internet access at home? Not on file 12/10/2023 Device with a working camera? Not on file Comments Unknown Sex and Gender Information Value Date Recorded Sex Assigned at Not on file Legal Sex Female 2:03 PM EDT Gender Identity Not on file Sexual Orientation Not on file Plan of Treatment Health Maintenance Due Date Last Done Comments Adult Td,Tdap Booster 1995 POTASSIUM LEVEL 1995 DEPRESSION SCREENING 2007 SMOKING Hx and SMOKELESS TOB ACCO SCREENING 2008 HEPATITIS C SCREENING 2013 HIV ONE-TIME SCREENING (18-6 5 YEARS) 2013 PAP SMEAR 2016 INFLUENZA VACCINE (#1) 2025 COVID-19 VACCINE ( - 2023-2 5 season) 2025 HEPATITIS A VACCINES Aged Out No long er eligible based on patient's age to complete this topic HIB VACCINES Aged Out No longer eligi ble based on patient's age to complete this topic MENINGOCOCCAL VACCINES (ACWY) Aged Out No longer eligible based on patient's age to complete this topic MENINGOCOCCAL VACCINES (B) Aged Out N o longer eligible based on patient's age to complete this topic PNEUMOCOCCAL VACCINES (0-49 years) Aged Out No longer eligible based on patient's age to complete this topic Medical Devices Not on file Insurance ORCARE DIRECT CONNECTORCARE DIRECT [facility] CONNECTORCARE DIRECT CONNECTORCARE DIRECT [facility] CONNECTORCARE DIRECT [facility] DIRECT Care Teams Ultimate Hoops Scoreboard Operator Relationship Specialty Start Date End Date Mima Dixon MD [address] [place] [address] PCP - General 12/10/23 Additional Source Comments The information contained in this document represents components of the legal health record. It is not the complete legal health record.[facility]
--- OUTSIDE RECORDS SUMMARY | 2025-05-11 11:27 | XMS_ITS | Encounter Summary ---
Author Organization [employer] Address [address] [facility] [place] [address] Care Team Providers Care Shaker Screen Operator Name Role Phone Mima Dixon MD Primary Care Provider [phone] Reason for Visit * Reason Onset Date Comments Medication Question 02/21/2024 Encounter Details Date Type Department Care Team ([facility] st Contact Info) Description 02/21/2024 Telephone [facility] MEDICINE [address] [place] [address] Mima Dixon MD [address] [place] [address] Medication Question Social History Tobacco Use Types [...] hr tablet . Please contact pt at [phone]. documented in this encounter Plan of Treatment Not on file documented as of this encounter Visit Diagnoses Not on filedocumented in this encounter Additional Health Concerns Assessment Noted Time PHQ-9 Depression Total Score: 10 024 3:20 PM EDT documented as of this encounter Care Teams Shaker Screen Operator Relationship Specialty Start Date End Date Mima Dixon MD [address] [place] [id number] PCP - General Family Medicine 08/26/18 documented as of this encounter
--- OUTSIDE RECORDS SUMMARY | 2025-05-11 11:27 | XMS_ITS | Encounter Summary ---
Author Organization [employer] Address [address] [facility] [address] [place] [address] Care Team Providers Care Retail Assistant Store Manager Name Role Phone Mima Dixon MD Primary Care Provider [phone] Reason for Visit * Reason Onset Date Comments Nurse Triage 02/25/2023 Encounter Details Date Type Department Care Team ([facility] st Contact Info) Description 02/25/2023 Telephone [facility] [address] [place], [place] [phone] Mima Dixon MD [address] [place] [address] Nurse Triage Social History Tobacco Use Types [...] Pt agreed with disposition and Apt in [facility] 02/25 @ 1040am. Insurance is verified [...] accepted this outcome Please contact pt at [phone] documented in this encounter Plan of Treatment Not on file documented as of this encounter Visit Diagnoses Not on filedocumented in this encounter Additional Health Concerns Assessment Noted Time PHQ-9 Depression Total Score: 5 11/22/19 23 9:59 AM EDT documented as of this encounter Care Teams Retail Assistant Store Manager Relationship Specialty Start Date End Date Mima Dixon MD [address] [place] [address] PCP - General Family Medicine 08/26/18 documented as of this encounter
--- OUTSIDE RECORDS SUMMARY | 2025-05-11 11:27 | XMS_ITS | Encounter Summary ---
Author Organization [employer] Address [address] [facility] 7t [place] [address] Care Team Providers Care Openstack Developer Name Role Phone Mima Dixon MD Primary Care Provider [phone] Reason for Visit * Reason Onset Date Comments Change dates 09/03/2023 Encounter Details Date Type Department Care Team ([facility] Contact Info) Description 09/03/2023 Telephone [facility] MED & PEDS [address] [place], [place] [phone] Mima Dixon MD [address] [place] [address] Change dates Social History Tobacco Use Types [...] the first week. Please contact pt @ [phone] * Telephone Encounter - [facility] Woody Shine - 09/03/2023 3:25 PM EST Tc from pt requesting if provider could change dates on her medical leave. States that start date was supposed to be on 08/21/23-09/04/23 but is requesting if started date could be change to 08/14/23-09/04/23 due to originally using her vacation time for the first week. Please contact pt @ [phone] documented in this encounter Plan of Treatment Not on file documented as of this encounter Visit Diagnoses Not on filedocumented in this encounter Additional Health Concerns Assessment Noted Time PHQ-9 Depression Total Score: 9 08/06/20 3:52 PM EST documented as of this encounter Care Teams Openstack Developer Relationship Specialty Start Date End Date Mima Dixon MD [address] [place] [address] PCP - General Family Medicine 08/26/18 documented as of this encounter
--- OUTSIDE RECORDS SUMMARY | 2025-05-11 11:27 | XMS_ITS | Encounter Summary ---
Author Organization [employer] Address [address] [facility] 7t [place] [address] Care Team Providers Care Desk Interviewer Name Role Phone Mima Dixon MD Primary Care Provider [phone] Encounter Details Date Type Department Care Team (Late st Contact Info) Description 02/21/2024 Orders Only [facility] [address] [place] [address] Provider, MD Bryan Social History Tobacco Use Types Packs/Day Years [...] documented as of this encounter Care Teams Desk Interviewer Relationship Specialty Start Date End Date Mima Dixon MD [address] [place] [phone] PCP - General Family Medicine 08/26/18 documented as of this encounter
--- OUTSIDE RECORDS SUMMARY | 2025-05-11 11:27 | XMS_ITS | Encounter Summary ---
Author Organization [email or web address] Address [address] [facility] 7t [place] [address] Care Team Providers Care Belt Loop Maker Name Role Phone Mima Dixon MD Primary Care Provider [phone] Reason for Visit * Reason Onset Date Comments Results 12/31/2023 Encounter Details Date Type Department Care Team ([facility] st Contact Info) Description 12/31/2023 Telephone [facility] MEDICINE [address] [place] [address] Mima Dixon MD [address] [place] [address] Results Social History Tobacco Use Types Packs/Day [...] not abnormal. Pt states she has upcoming voice coach appt.Stated to pt to call back if [...] documented as of this encounter Care Teams Belt Loop Maker Relationship Specialty Start Date End Date Mima Dixon MD [address] [place] [address] PCP - General Family Medicine 08/26/18 documented as of this encounter
--- OUTSIDE RECORDS SUMMARY | 2025-05-11 11:27 | XMS_ITS | Clinical Summary ---
Author Organization [employer] Address [address] [facility] [address] 7[address] [place] [address] Care Team Providers Care Bit Sharpener Name Role Phone Mima Dixon MD Primary Care Provider [phone] Allergies No known active allergies Medications * This document contains information received from the source organization and may not represent a complete record from that organization. valACYclovir (Valtrex) 1 g tablet Take 1,000 mg by mouth every 12 (twelve) hours. 2 Active cholecalciferol (Vitamin D-3) 1.25 MG (89213 UT) capsule Take by mouth 1 (one) [...] External Pt will be referred outside the [facility] once she changes her insurance in 2023, Patient Self Plan Patient to utilize skills provided in intervention , [facility], Patient to engage in [...] External Pt will be referred outside the [facility] once she changes her insurance in 2023, Patient Self Plan Patient to utilize skills provided in intervention , [facility], Patient to engage in [...] 02/25/2023 Gastroesophageal reflux disease 01/19/2020 Acne 03/03/2014 Immunizations Immunization Administration Dates Next Due DTP [...] t he electric, gas, oil or water [employer] threatened to shut off services in your [...] 91 10/09/2024 2:07 PM EST Temperature 36.4 C (97.5 F) 10/09/2024 2:07 PM EST Respiratory Rate 17 10/09/2024 2:07 PM EST Oxygen Saturation 99% 10/09/2024 2:07 PM EST Inhaled Oxygen Concentration - - Weight 70.3 kg (155 lb) 11/25/2024 9:15 AM EDT Height 157.5 cm (5' 2 ) 10/06/2024 2:27 PM EST Body Mass Index 28.35 10/06/2024 2:27 PM EST Plan of Treatment Health Maintenance Due Date Last Done Comments Disability Screening 1995 Alcohol/Substance Use Screening 2007 Family Planning (PISQ) 2010 DTaP/Tdap/Td Vaccines (4 - Td or Tdap) 03/03/2024 03/03/2014, 02/07/2005, 05/05/1996, Additional history exists SDOH Screening 02/19/2025 02/20/2024 Tobacco Screening 02/19/2025 02/20/2024 COVID-19 Vaccine ( season) 2025 12/24/2020, 12/03/2020 Influenza Vaccine (#1) 2025 06/05/2019, 2009 Depression Screening 08/13/2025 08/13/2024, 08/13/20 24 Cervical Cancer Screening 04/19/2028 HPV/Cotest 04/19/2028 04/19/2023 Pap Smear 04/19/2028 04/19/2023 Zoster Vaccines (1 [...] Completed 11/21/2022, 022 HIV Screening Completed 04/05/2023, 02/2023, 05/24/2022 HIB Vaccines Aged Out No longer [...] Procedure Name Priority Date/Time Associated Diagnosis Comments PAP/HPV Routine 04/19/2023 HIV ANTIBODY/ANTIGEN ([place] [facility]) Routine 04/05/2023 2:54 PM EDT Vaginal discharge HEPATITIS PANEL, GENERAL Routine 11/21/2022 10:03 AM EDT Chronic bilateral low back pain without sciatica Screen for STD (sexually transmitted disease) Hirsutism from Last 3 Months or Most Recently Relevant to Health Maintenance Results * Pap Smear (04/19/2023) Pap Negative for intraephithelial lesion or malignancy Negative for intraephithelial lesion or malignancy, Other HPV Undetected Undetected, Indeterminate, Quantitative, Not Detected us Historical Provider HEALTH MAINTENANCE Final Result * HIV Ab/Ag (LANCE GARCIA) (04/05/2023 2:54 PM EDT) Pathologist [facility] HIV AB/AG Nonreactive Nonreactive [facility] Comment:HIV-1 p24 Ag and/or HIV-1/HIV-2 Ab not detected.A test result that is nonreactive does not exclude thepossibility of exposure to or infection with HIV-1 and/orHIV-2. Nonreactive results in this assay for individualswith prior exposure to HIV-1 and/or HIV-2 may be due toantigen and antibody levels that are below the limit ofdetection of this assay.The [employer] Expert HIV Ag/Ab Combo assay result andsupplemental assay results should be interpreted inconjunction with the patient's clinical presentation,history and other laboratory results. If the results areinconsistent with clinical evidence, additional testing issuggested to confirm the result. Blood 04/05/2023 2:54 PM EDT 04/05/2023 4:38 PM EDT Mariza Brewster [facility] LAB BLOOD ORDERABLES Final Res ult [facility] [address] [place] [phone] * (ABNORMAL) Hepatitis Panel, General (11/21/2022 10:03 AM EDT) Pathologist [facility] Hepatitis A Antibody Total NON-REACT KLAI NON-REACT KALI [employer] [place] [facility] Comment: For additional information, please refer to http://education.[employer]/faq/PEJ697 (This link is being provided for informational/ educational purposes only.) Hepatitis B Surface Antibody QL REACTIVE( A) NON-REACT [employer] [place] [facility] Hepatitis B Surface Ag NON-REACT KALI NON-REACT KALI [employer] [place] [facility] Hepatitis B Core Antibody Total NON-REACT KALI NON-REACT [employer] [place] [facility] Hepatitis C Antibody NON-REACT KALI NON-REACT KALI [employer] [place] [facility] Index 0.04 <1.00 [facility] Comment: HCV antibody was non-reactive. There is no laboratory evidence of HCV infection. In most cases, no further action is required. However, if recent HCV exposure is suspected, a test for HCV RNA (test code 40895) is suggested. For additional information please refer to http://education.[employer]/faq/ICL27x3 (This link is being provided for informational/ educational purposes only.) 11/21/2022 10:0 3 AM EDT 11/21/2022 10:03 AM EDT Narrative [facility] - 11/22/2022 6:23 AM EDT FASTING:NO FASTING: NO us Mima Dixon MD LAB BLOOD ORDERABLES Final Re sult [facility] [address], [place] [address] [employer] [place] [employer] [address] [place] [address] from Last 3 Months or Most Recently Relevant to Health Maintenance Insurance [facility] Care Teams Bit Sharpener Relationship Specialty Start Date End Date Mima Dixon MD [address] [place] [address] PCP - General Family Medicine 08/26/18
== END 2025-05-11 09:22 | disposition home or self-care (01) ==
LOC: HO.ENCR 09:07
PROVIDERS: PCP Pediatrics; Visit Provider Student in an Organized Health Care Education/Training Program
DX: L68.0 Hirsutism (principal); E66.9 Obesity, unspecified
CPT/HCPCS: 99214

== ENCOUNTER → 2025-05-11 09:07 | Outpatient (BNVA) | payer OTHER, SELFPAY | PROVIDERS: PCP Pediatrics; Visit Provider Student in an Organized Health Care Education/Training Program | DX: L68.0 Hirsutism (principal); E66.9 Obesity, unspecified | CPT/HCPCS: 99212 ==

== ENCOUNTER 2025-07-07 15:09 | Outpatient (AMB) | payer OTHER, SELFPAY ==
--- OUTSIDE RECORDS SUMMARY | 2025-07-06 14:00 | XMS_ITS | Encounter Summary ---
Author Organization [employer] Address [address] [facility] [place] [address] Care Team Providers Care Order Builder Loader Name Role Phone Mima Dixon MD Primary Care Provider [phone] Reason for Visit * Reason Comments B12 Injection Encounter Details Date Type Department Care Team (Latest Contact Info) Description 07/06/2025 2:00 PM EST Clinical Support [facility] MED & PEDS [address] [place] [address] Tanesha Rodney RN Gastroesophageal reflux disease, unspecified whether esophagitis present Social History Tobacco Use Types Packs/Day Years [...] AM EDT documented as of this encounter Progress Notes * Tanesha Rodney RN - 07/06/2025 2:00 PM EST SUBJECTIVE: Farida Wellington is a 30 y.o. year old female who presents for B12 Injection Preferred language for medical information: Hebrew Ancillary Services Manager needed: No Standing Ordered verified: Yes, standing order expiration date: 06/04/25 Farida Wellington denies any difficulties with previous injection that was received. Allergies[1] OBJECTIVE: B-12 injection given in right deltoid, medication was tolerated well. ASSESSMENT: Vitamin B12 deficiency PLAN: Farida Wellington will return for next injection on 08/03/25. [x] Advised to monitor injection site for any increased redness or swelling [x] Next appointment given Farida Wellington agrees with plan of care and verbalized understanding of instructions/education. Tanesha Rodney RN [1] No Known Allergies documented in this encounter Plan of Treatment Upcoming Encounters Date Type Department Care Team (Late st Contact Info) Description 08/03/2025 2:00 PM EST Nurse Only [facility] MED & PEDS [address] [place] [address] documented as of this encounter Visit Diagnoses Diagnosis Gastroesophageal reflux disease, unspecified whether esophagitis present documented in this encounter Administered Medications Inactive Administered Medications - up to 3 most recent administrations Medication Order MAR Action Action Date Dose Rate Site cyanocobalamin (Vitamin B-12) injection 1,000 mcg 1,000 mcg, Intramuscular, Once, On 07/06/25 at 1445, For 1 doseIndications:Gastroeso phageal reflux disease, unspecified whether esophagitis present Given 07/06/2025 2:45 PM EST 1,000 mcg Right Deltoid documented in this encounter Additional Health Concerns Assessment Noted Time PHQ-9 Depression Total Score: 8 08/13/20 24 11:43 AM EST documented as of this encounter Care Teams Order Builder Loader Relationship Specialty Start Date End Date Mima Dixon MD [address] [place] [address] PCP - General Family Medicine 08/26/18 documented as of this encounter
--- NOTE | 2025-07-07 15:12 | A.OFFVIS_ITS ---
Vital Signs 07/07/25 15:15 Height 5 ft 2 in Weight 140 lb 4.807 oz BMI 25.7 BP 102/58 L Blood Pressure Location Rt brachial Position Sitting Pulse 77 Pulse Source Pulse Oximeter Intake Visit Reasons: hirsutism Intake Note: Patient presents here today for a follow-up on Hirsutism: Patient last seen by DR Minaya. Boat Hoist Operator Required: No Accompanied by: Self / Same As Patient Allergies No Known Allergies Allergy (Verified 05/11/25 09:12) HPI Comments Details: 29-year-old female coming in today for follow up of hirsutism and obesity. Last seen by Dr. Minaya on 05/11/2025, this is my 1st time seeing this patient. HPI from prior visit presents with complaints of hirsutism, acne, hair loss. She denies history of HTN, prediabetes. She has family history of paternal grandmother having a pacemaker, but no one with DM, stroke, [place]. . Hirsutism: some chin hair she plucks, waxes upper lip, no excessive hair on abdomen or breast. Laser treatment for hair of bikini area and axillae. Legs shave, doesnt do anything on arms. Ferrimen Shin score of 8 done with patient. Reports easy bruising, no proximal muscle weakness. No abdominal striae. Weight 171 lbs BMI 31.1, highest per patient. Feels it has increased in the last 2 years, before she used to be 150 lbs when she works out. Exercises 6 times a week 1 hr cardio 1 hr weights. Diet : 3 meals a day sometimes snacks, fruits mostly, sometimes chips or cookies Denies hair loss on scalp. Acne: 2016 treated with acutane, 2019 again acutane, now again since last year, seeing dermatology , mostly on the cheeks Acne now better Started spironolactone 75 mg 3 months ago through PCP. she has a copper IUD since the past 3-4 years. 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 Menarche: 12 years LMP : 05/15 :1 : 1 Liposuction 2020 Medications: Spironolactone 75 mg daily stopped in May 2024, Used to be on OCPs but got while on it Cosmetic therapies: Laser hair removal, waxing, threading, plucking She had an ultrasound of her pelvis in February 2024, I do not have the report scanned in but patient showed me a picture of the report on her phone today08/10/24 which showed no polycystic ovaries , normal appearance of the ovaries and a subserosal fundal fibroid 1.3 x 0.9 x 1.3 cm done at [facility] radiology 03/03/24. From May 2024 to April 2025, the patient demonstrated steady progress in weight management and lifestyle modification. In May 2024, she discontinued spironolactone 75 mg daily due to a strong urine odor and relied on cosmetic therapies. Her menstrual cycles remained regular, and labs from June 19 showed normal FSH, LH, prolactin, testosterone, 24-hour urine cortisol, and A1c levels. By July 2024, her weight had increased slightly to 171 lb (BMI 31.1 kg/m?). She maintained an active routine, walking 3 miles daily, weight training four times a week, and attending hot yoga weekly while following a 500-calorie deficit diet. In October 2024, she had lost 9 lb, reaching 162 lb (BMI 29.8 kg/m?). She was taking Zepbound 5 mg weekly, with constipation that improved using stool softeners. Her exercise routine intensified to walking 4 miles daily, weight training five times a week, and hot yoga three times a week, alongside continued calorie tracking. By January 2025, her weight further decreased to 149 lb (BMI 27.2 kg/m?). After briefly increasing Zepbound to 7.5 mg weekly in October, she reduced it back to 5 mg in December due to concerns about rapid weight loss, with stable weight since then. As of April 2025, her weight was 152 lb (BMI 27.9 kg/m?) on Zepbound 5 mg weekly. She maintained her regular exercise and diet regimen and was planning to start ADHD medication, which she anticipated might further reduce her appetite. Interval history: She is currently requesting to be restarted on Spironolactone. 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 But she is having more side effects, specially with less healthy food Her insurance will stop her [employer] coverage in Physical exam: General: Well appearing. NAD. Neck/Thyroid: Thyroid not palpable, no nodules. CV: RRR, no murmur. No edema. Resp:Lungs clear to auscultation bilaterally Abdomen: Soft, nontender. nondistended Extremities/Neuro: No weakness Laboratory Tests 06/19/24 12:50 Sodium 138 Potassium 3.8 Chloride 106 Carbon Dioxide 27 Anion Gap 9 L BUN 12 Creatinine 0.73 Estimated GFR > 60 Random Glucose 103 Estimat Average Glucose 94 Hemoglobin A1c % 4.9 Calcium 9.3 FSH 11.0 Luteinizing Hormone 22.0 Prolactin 16.9 Total Testosterone 19 Fr Testosterone Dialys 2.7 Androstenedione 146 DHEA Sulfate 262 17-Hydroxyprogesterone 144 PFSH Medical History Obesity (BMI 30.0-34.9) Hirsutism Surgical History History of plastic surgery Family History Mother No problems noted. Father Hypertension Social History Alcohol intake: current Comment: Socially Patient Tobacco Use Status: Never used Tobacco Physical Exam Vital Signs: Last Vital Signs Pulse 77 07/07/25 15:15 BP 102/58 L 07/07/25 15:15 BMI result Body Mass Index 25.7 Assessment & Plan Assessment & Plan (1) Hirsutism: Code(s): L68.0 - Hirsutism Category: Medical Plan: Patient with a history hirsutism, acne. Labs showed normal thyroid function, normal DHEA-S. . She had an ultrasound of her pelvis/ovaries in February 2024 at [facility] which did not show polycystic ovaries. She has stopped taking the spironolactone 75 mg daily in May 2024 due to strong smell in the urine, which improved after stopping the medication. She is not interested in this at this time and is okay with pursuing cosmetic therapies such as plucking/shaving. She is not on oral contraceptive pills, she has a copper IUD, her periods are regular. She previously got and had to have an on the oral contraceptive pill hence she is not on those. She has never tried metformin. No diagnosis of diabetes, prediabetes, hypertension. Normal prolactin, FSH, LH, 17 hydroxyprogesterone and DHEA-S levels, testosterone levels. Normal 24 hour urine cortisol level. Ferrimen Gellway score 8, hirsutism is mild. She is using cosmetic therapies such as laser but only requires plucking for excessive facial hair. she can continue that. She desires to restart spironolactone as she is concerned about her acne bouts. Review of the side effects of spironolactone including hyperkalemia and hyponatremia. We discussed with the patient the need for checking labs in 5 days after resstarting spironolactone. Plan: -continue cosmetic measures -Restart spironolactone 75 mg daily -Repeat labs in 5 days (2) Obesity (BMI 30.0-34.9): Code(s): E66.9 - Obesity, unspecified Category: Medical Plan: BMI: 27.2 kg per m2 down from 31.1 kg per m2 July 2024 Weight at 152 lb 05/11/2025 which is up from 148 lb in January 2025 which was down from 171 lb in July 2024 (6 months) Highest BMI per patient was 31. She used to be 152 lb, She has made extensive lifestyle modification in the pastyear She is maintaining a 500 calorie deficit daily on her phone apps , walking 2 miles daily, also doing resistance training in addition to that and hot yoga. No acromegalic features. 24 hour urine cortisol was normal. Started Zepbound Aug 2024, humberto on 5 mg weekly dose , She drinks alcohol occasionally. Does not have any history of gallstones. Denies any family or personal history of medullary thyroid cancer. She is currently losing a reasonable amount of weight since last visit where Zepbound was increased to 7.5mg. She does notice some more dyspeptic symptoms at this dose, but she is able to tolerate them. She is concerned about her insurance not covering her Zepbound from . Plan: -Continue Zepbound to 7.5 mg weekly injection -Continue lifestyle modification as you are with calorie deficit and exercise as mentioned above -Follow in 3 months Plan 30 minutes spent reviewing previous records, labs, imaging, education and documenting in the chart Orders: Orders Basic Metabolic Panel 4 Days L68.0 - Hirsutism Medications: New spironolactone 75 mg (1.5 x 50 mg) PO DAILY 90 tabs 3RF L68.0 - Hirsutism Coding Level of Care Code Est Pt Level 4 (54142) Diagnoses Hirsutism L68.0 Obesity (BMI 30.0-34.9) E66.9
[2025-07-07 15:15] VITALS: BP 102/58; PULSE 77; BMI 25.7
--- OUTSIDE RECORDS SUMMARY | 2025-07-07 18:27 | XMS_ITS | Clinical Summary ---
Author Organization [employer] Address [address] [place] [address] Care Team Providers Care Real Estate Site Analyst Name Role Phone Mima Dixon MD Primary Care Provider [phone] Allergies No known active allergies Medications * This document contains information received from the source organization and may not represent a complete record from that organization. valACYclovir (Valtrex) 1 g tablet Take 1,000 mg by mouth every 12 (twelve) hours. 2 Active copper (Paragard) IUD Take by intrauterine [...] BY MOUTH EVERY DAY 30 tablet 3 Active cholecalciferol (Vitamin D-3) 50 MCG (2000 UT) capsule Take 1 capsule (50 mcg) by mouth Once per day. 90 capsule 3 5 Active cyanocobalamin (Vitamin B-12) 1000 MCG/ML injection Inject 1 ml IM monthly 10 mL Active Hospital, Clinic, or Other Facility Administered Medication Ordered Dose Route Frequency Start Date End Date Status cyanocobalamin (Vitamin B-12) injection 1,000 mcgIndications:Vitamin B 12 deficiency 1000 mcg IM Every 30 days 06/05/2025 Active cyanocobalamin (Vitamin B-12) injection 1,000 mcgIndications:Gastroes ophageal reflux disease, unspecified whether esophagitis present 1000 mcg IM Once 07/06/2025 07/06/2025 Ended Active Problems Problem Noted Date Diagnosed Date [...] Health Integration Plan Internal Follow up with [facility], External Pt will be referred outside the [facility] once she changes her insurance in 2023, Patient Self Plan Patient to utilize skills provided in intervention , Patient to reach out to [facility] team as needed, Patient to engage in OP therapy , Patient to reach out to [facility] as needed, and Patient to follow-up with [...] Health Integration Plan Internal Follow up with [facility], External Pt will be referred outside the [facility] once she changes her insurance in 2023, Patient Self Plan Patient to utilize skills provided in intervention , Patient to reach out to [facility] team as needed, Patient to engage in OP therapy , Patient to reach out to [facility] as needed, and Patient to follow-up with [...] Encounters Date Type Department Care Team Description 07/06/2025 2:00 PM EST Clinical Support [facility] [address] [place] [address] Tanesha Rodney RN Gastroesophageal reflux disease, unspecified whether esophagitis present 07/06/2025 Travel 06/08/2025 2:15 PM EDT Clinical Support [facility] [address] [place] [address] Tanesha Rodney RN Gastroesophageal reflux disease, unspecified whether esophagitis present 06/08/2025 Travel 06/04/2025 Orders Only [facility] [address] [place] [address] Mima Dixon MD Vitamin B 12 deficiency (Primary Dx) 06/03/2025 Orders Only [facility] [address] [place] [address] Mima Dixon MD 06/02/2025 Telephone [facility] [address] [place] [address] Mima Dixon MD Results 05/26/[address] [address] Mima Dixon MD Results from Last 3 Months Immunizations Immunization Administration [...] 10/06/2024 2:27 PM EST Plan of Treatment Upcoming Encounters Date Type Department Care Team (Late st Contact Info) Description 08/03/2025 2:00 PM EST Nurse Only [facility] [address] [place] [address] Health Maintenance Due Date Last Done Comments [...] MAINTENANCE Final Result * HIV Ab/Ag (LANCE DP) (04/05/2023 2:54 PM EDT) HIV AB/AG Nonreactive Nonreactive [facility] Comment:HIV-1 p24 Ag and/or HIV-1/HIV-2 Ab not detected.A test result that is nonreactive does not exclude thepossibility of exposure to or infection with HIV-1 and/orHIV-2. Nonreactive results in this assay for individualswith prior exposure to HIV-1 and/or HIV-2 may be due toantigen and antibody levels that are below the limit ofdetection of this assay.The Malin Hedis Specialist HIV Ag/Ab Combo assay result andsupplemental assay results should be interpreted inconjunction with the patient's clinical presentation,history and other laboratory results. If the results areinconsistent with clinical evidence, additional testing issuggested to confirm the result. Blood 04/05/2023 2:54 PM EDT 04/05/2023 4:38 PM EDT us Mariza Brewster [facility] LAB BLOOD ORDERABLES Final Res ult [facility] [address] [place] [phone] * (ABNORMAL) Hepatitis Panel, General (11/21/2022 10:03 AM EDT) Hepatitis A Antibody Total NON-REACT KALI NON-REACT [employer] [place] [facility] Comment: For additional information, please refer to http://education.[employer]/faq/KVQ582 (This link is being provided for informational/ educational purposes only.) Hepatitis B Surface Antibody QL REACTIVE( A) NON-REACT [employer] [place] [facility] Hepatitis B Surface Ag NON-REACT KALI NON-REACT KALI [employer] [place] [facility] Hepatitis B Core Antibody Total NON-REACT KALI NON-REACT [employer] [place] [facility] Hepatitis C Antibody NON-REACT KALI NON-REACT [employer] [place] [facility] Index 0.04 <1.00 [facility] Comment: HCV antibody was non-reactive. There is no laboratory evidence of HCV infection. In most cases, no further action is required. However, if recent HCV exposure is suspected, a test for HCV RNA (test code 58558) is suggested. For additional information please refer to http://education.[employer]/faq/RGY33n0 (This link is being provided for informational/ educational purposes only.) 11/21/2022 10:0 3 AM EDT 11/21/2022 10:03 AM EDT Narrative [facility] - 11/22/2022 6:23 AM EDT FASTING:NO FASTING: NO us Mima Dixon MD LAB BLOOD ORDERABLES Final Re sult [facility] [address], [place] [address] [employer] [place] [employer] [facility] [address] [place] [address] from Last 3 Months or Most Recently Relevant to Health Maintenance Insurance [facility] [place] [id number] Care Teams Real Estate Site Analyst Relationship Specialty Start Date End Date Mima Dixon MD [address] [place] [id number] PCP - General Family Medicine 08/26/18
--- OUTSIDE RECORDS SUMMARY | 2025-07-07 18:27 | XMS_ITS | Encounter Summary ---
Author Organization [employer] Address [address] [place] [address] Care Team Providers Care Washing Machine Assembler Name Role Phone Mima Dixon MD Primary Care Provider [phone] Reason for Visit * Reason Onset Date Comments Medication Question 02/21/2024 Encounter Details Date Type Department Care Team ([facility] st Contact Info) Description 02/21/2024 Telephone [facility] [address] [place] [address] Mima Dixon MD [address] [place] [address] Medication Question Social History Tobacco Use Types [...] hr tablet . Please contact pt at [phone]. documented in this encounter Plan of Treatment Upcoming Encounters Date Type Department Care Team (Late st Contact Info) Description 08/03/2025 2:00 PM EST Nurse Only [facility] [address] [place] [address] documented as of this encounter Visit Diagnoses Not on filedocumented in this encounter Additional Health Concerns Assessment Noted Time PHQ-9 Depression Total Score: 10 024 3:20 PM EDT documented as of this encounter Care Teams Washing Machine Assembler Relationship Specialty Start Date End Date Mima Dixon MD [address] [place] [address] PCP - General Family Medicine 08/26/18 documented as of this encounter
--- OUTSIDE RECORDS SUMMARY | 2025-07-07 18:27 | XMS_ITS | Encounter Summary ---
Author Organization [employer] Address [address] [place] [address] Care Team Providers Care Sales Representative Marine Supplies Name Role Phone Mima Dixon MD Primary Care Provider [phone] Reason for Visit * Reason Onset Date Comments Change dates 09/03/2023 Encounter Details Date Type Department Care Team ([facility] Contact Info) Description 09/03/2023 Telephone [facility] [address] [place], [place] [phone] Miam Dixon MD [address] [place] [address] Change dates Social History Tobacco Use Types [...] the first week. Please contact pt @ [phone] * Telephone Encounter - Wes Mckay Fátima - 09/03/2023 3:25 PM EST Tc from pt requesting if provider could change dates on her medical leave. States that start date was supposed to be on 08/21/23-09/04/23 but is requesting if started date could be change to 08/14/23-09/04/23 due to originally using her vacation time for the first week. Please contact pt @ [phone] documented in this encounter Plan of Treatment Upcoming Encounters Date Type Department Care Team (Late st Contact Info) Description 08/03/2025 2:00 PM EST Nurse Only [facility] [address] [place] [address] documented as of this encounter Visit Diagnoses Not on filedocumented in this encounter Additional Health Concerns Assessment Noted Time PHQ-9 Depression Total Score: 9 08/06/20 23 3:52 PM EST documented as of this encounter Care Teams Sales Representative Marine Supplies Relationship Specialty Start Date End Date Mima Dixon MD [address] [place] [address] PCP - General Family Medicine 08/26/18 documented as of this encounter
--- OUTSIDE RECORDS SUMMARY | 2025-07-07 18:27 | XMS_ITS | Encounter Summary ---
Author Organization [employer] Address [address] [place] [address] Care Team Providers Care Assisted Sales Representative Name Role Phone Mima Dixon MD Primary Care Provider [phone] Encounter Details Date Type Department Care Team (Latest Contact Info) Description 07/06/2025 Travel Social History Tobacco Use Types Packs/Day Years [...] as of this encounter Plan of Treatment Upcoming Encounters Date Type Department Care Team ([facility] st Contact Info) Description 08/03/2025 2:00 PM EST Nurse Only [facility] [address] [place] [address] documented as of this encounter Visit Diagnoses Not on filedocumented in this encounter Additional Health Concerns Assessment Noted Time PHQ-9 Depression Total Score: 8 08/13/20 24 11:43 AM EST documented as of this encounter Care Teams Assisted Sales Representative Relationship Specialty Start Date End Date Mima Dixon MD [address] [place] [address] PCP - General Family Medicine 08/26/18 documented as of this encounter
--- OUTSIDE RECORDS SUMMARY | 2025-07-07 18:27 | XMS_ITS | Encounter Summary ---
Author Organization [employer] Address [address] [place] [address] Care Team Providers Care Poultry Husbandry Worker Name Role Phone Mima Dixon MD Primary Care Provider Reason for Visit * Reason Onset Date Comments Results 12/31/2023 Encounter Details Date Type Department Care Team ([facility] st Contact Info) Description 12/31/2023 Telephone [facility] [address] [place] [address] Mima Dixon MD [address] [place] [phone] Results Social History Tobacco Use Types Packs/Day [...] not abnormal. Pt states she has upcoming contract runner appt.Stated to pt to call back if [...] Description 08/03/2025 2:00 PM EST Nurse Only [facility] [address] [place] [address] documented as of this encounter Visit Diagnoses Not on filedocumented in this encounter Additional Health Concerns Assessment Noted Time PHQ-9 Depression Total Score: 9 08/06/20 23 3:52 PM EST documented as of this encounter Care Teams Poultry Husbandry Worker Relationship Specialty Start Date End Date Mima Dixon MD [address] [place] [address] PCP - General Family Medicine 1/1/19 documented as of this encounter
--- OUTSIDE RECORDS SUMMARY | 2025-07-07 18:27 | XMS_ITS | Encounter Summary ---
Author Organization [employer] Address [address] [facility] [address]t [place] [address] Care Team Providers Care Head Irrigator Name Role Phone Mima Dixon MD Primary Care Provider [phone] Encounter Details Date Type Department Care Team (Late st Contact Info) Description 02/21/2024 Orders Only [facility] [address] [place] [address] Provider, MD Bryan Social History Tobacco Use [...] Upcoming Encounters Date Type Department Care Team ([facility] st Contact Info) Description 08/03/2025 2:00 PM EST Nurse Only [facility] [address] [place] [address] documented as of this encounter Procedures Procedure [...] documented as of this encounter Care Teams Head Irrigator Relationship Specialty Start Date End Date Mima Dixon MD [address] [place] [address] PCP - General Family Medicine 08/26/18 documented as of this encounter
--- OUTSIDE RECORDS SUMMARY | 2025-07-07 18:27 | XMS_ITS | Clinical Summary ---
Author Organization [facility] Address [address] [place] [address] Phone Care Team Providers Care Loft Worker Head Name Role Phone Mima Dixon MD Primary Care Provider [phone] Medications AKLIEF 0.005 % cream Apply 1 [...] 2016 INFLUENZA VACCINE (#1) 2025 COVID-19 VACCINE (1 - 2024-2 6 season) 2025 HEPATITIS A VACCINES Aged Out No long er eligible based on patient's age to complete this topic HIB VACCINES Aged Out No longer eligi ble based on patient's age to complete this topic IPV VACCINES Aged Out No longer eligi ble [...] on file Insurance [employer] [place] [place] [address] [employer] DIRECT [employer] [address] [place] [address] CONNECTORCARE DIRECT [facility] Care Teams Loft Worker Head Relationship Specialty Start Date End Date Mima Dixon MD [address] [place] [address] PCP - General 12/10/23 Additional Source Comments The information contained in this document represents components of the legal health record. It is not the complete legal health record.[facility]
--- OUTSIDE RECORDS SUMMARY | 2025-07-07 18:27 | XMS_ITS | Encounter Summary ---
Author Organization [employer] Address [address] [facility] [address] [place] [address] Care Team Providers Care Pulmonary Physician Name Role Phone Mima Dixon MD Primary Care Provider [phone] Reason for Visit * Reason Onset Date Comments Nurse Triage 02/25/2023 Encounter Details Date Type Department Care Team ([facility] st Contact Info) Description 02/25/2023 Telephone [facility] [address] [place], [place] [phone] Mima Dixon MD [address] [place] [address] Nurse Triage Social History Tobacco Use Types [...] Pt agreed with disposition and Apt in [facility] 02/25 @ 1040am. Insurance is verified as [...] accepted this outcome Please contact pt at [phone] documented in this encounter Plan of Treatment Upcoming Encounters Date Type Department Care Team (Late st Contact Info) Description 08/03/2025 2:00 PM EST Nurse Only [facility] [address] [place] [address] documented as of this encounter Visit Diagnoses Not on filedocumented in this encounter Additional Health Concerns Assessment Noted Time PHQ-9 Depression Total Score: 5 11/22/19 23 9:59 AM EDT documented as of this encounter Care Teams Pulmonary Physician Relationship Specialty Start Date End Date Mima Dixon MD [address] [place] [id number] PCP - General Family Medicine 08/26/18 documented as of this encounter
--- OUTSIDE RECORDS SUMMARY | 2025-07-07 18:27 | XMS_ITS | Encounter Summary ---
Author Organization [employer] Address [address] [facility] [address] [place] [address] Care Team Providers Care Sugar Cane Grower Name Role Phone Mima Dixon MD Primary Care Provider [phone] Reason for Visit * Reason Onset Date Comments Results 06/02/2025 Encounter Details Date Type Department Care Team ([facility] st Contact Info) Description 06/02/2025 Telephone [facility] [address] [place] [address] Mima Dixon MD [address] [place] [phone] Results Social History Tobacco Use Types Packs/Day [...] encounter Miscellaneous Notes * Telephone Encounter - Tanesha Rodney RN - 06/03/2025 9:50 AM EDT TC to pt to advise on supplements and assess for pt preferance. Pt stated would like to do IM b12. Advised of initiation schedule for b12. Pt verbalized understanding. 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 Pt verbalized understanding and agreement with plan. * Telephone Encounter - Brodie Black - 06/02/2025 4:15 PM EDT TC from pt requesting call back regarding Results. Type of results: lab Date when done: 2-3 x weeks ago dropped off results last week . Facility: [facility] documented in this encounter Plan of Treatment Upcoming Encounters Date Type Department Care Team (Late st Contact Info) Description 08/03/2025 2:00 PM EST Nurse Only [facility] MED [facility] PED[facility] [address] [place] [address] documented as of this encounter Visit Diagnoses Not on filedocumented in this encounter Additional Health Concerns Assessment Noted Time PHQ-9 Depression Total Score: 8 08/13/20 24 11:43 AM EST documented as of this encounter Care Teams Sugar Cane Grower Relationship Specialty Start Date End Date Mima Dixon MD [address] [place] [id number] PCP - General Family Medicine 08/26/18 documented as of this encounter
== END 2025-07-07 15:43 | disposition home or self-care (01) ==
LOC: HO.ENCR 15:09
PROVIDERS: PCP Pediatrics; Visit Provider Student in an Organized Health Care Education/Training Program
DX: L68.0 Hirsutism (principal); E66.9 Obesity, unspecified
CPT/HCPCS: 99214

== ENCOUNTER → 2025-07-07 15:09 | Outpatient (BNVA) | payer OTHER, SELFPAY | PROVIDERS: PCP Pediatrics; Visit Provider Student in an Organized Health Care Education/Training Program | DX: L68.0 Hirsutism (principal); E66.9 Obesity, unspecified | CPT/HCPCS: 99212 ==